=== PATIENT | female | born 1935 | race Caucasian/White ===

== ENCOUNTER 2017-03-07 07:49 | Day surgery (SDC) | payer MEDICARE ==
[2017-02-28 13:51] VITALS: BMI 23.3
[~2017-03-07 07:49] MED LIST: LACTATED RINGERS 1,000 ML IV SCH; LIDOCAINE 1% 20 ML VIAL (10MG/ML) FOR IV START INTRADERMA PRN
[2017-03-07] MEDS ORDERED: LACTATED RINGERS 1,000 ML IV ONE (08:01)
[2017-03-07 08:18] VITALS: TEMP 96.8
[2017-03-07 08:22] LABS: Glucose,Whole Blood 104 mg/dL (75-99)
[2017-03-07] MEDS ORDERED: PROPOFOL 10 MG/ML 20 ML VIAL IV ONE (08:24)
[2017-03-07] MEDS ORDERED: LIDOCAINE 1% INJ 10MG/ML (20 ML MDV) ONE (08:24)
--- NOTE | 2017-03-07 08:42 | P.PCN ---
Date of Procedure: 03/07/17 Procedure(s) Performed: BRIEF HISTORY: Patient is a 81-year-old pleasant white female, scheduled for an elective colonoscopy as a part of evaluation of prior history of colon polyps. Her last colonoscopy was in 2014 and was noted to have a tubular adenoma. PROCEDURE PERFORMED: Colonoscopy with snare polypectomy. PREOPERATIVE DIAGNOSIS: History of colon polyps. IV sedation per Anesthesia. PROCEDURE: After informed consent was obtained, the patient, was brought into the endoscopy unit. IV sedation was administered by Anesthesia under continuous monitoring. Digital rectal examination was normal. Initially the Olympus CF- 160 flexible video colonoscope was then inserted in the rectum, gradually advanced into the cecum without any difficulty. Careful examination was performed as the scope was gradually being withdrawn. Ileocecal valve and the appendiceal orifice were visualized and appeared normal. Prep was excellent. Mucosa of the cecum, ascending colon, transverse colon, descending colon, sigmoid colon, and rectum appeared normal. In the mid rectum there was a 5-6 mL polyp that was removed by snare polypectomy. Retroflexion was performed in the rectum and no lesions were seen. The patient tolerated the procedure well. IMPRESSION: 5-6 mm mid rectal polyp status post polypectomy Rest of the colon appeared normal. RECOMMENDATIONS: Findings of this examination were discussed with the patient as well as a family. She was advised to follow with the biopsy results. Based the biopsy results she can have a repeat surveillance colonoscopy in 5 years from now depending on her overall medical condition.
[2017-03-07 08:45] VITALS: RESP 20
[2017-03-07 09:00] VITALS: BP 104/56; PULSE 52
== END 2017-03-07 09:26 | disposition home or self-care (01) ==
LOC: ORWHC2ENDO 07:49
DX: Z12.11 Encounter for screening for malignant neoplasm of colon (principal); D12.8 Benign neoplasm of rectum; Z86.010 Personal history of colon polyps; I25.10 Atherosclerotic heart disease of native coronary artery without angina pectoris; I10 Essential (primary) hypertension; E78.5 Hyperlipidemia, unspecified; Z87.891 Personal history of nicotine dependence; Z86.73 Personal history of transient ischemic attack (TIA), and cerebral infarction without residual deficits; Z79.02 Long term (current) use of antithrombotics/antiplatelets; Z79.899 Other long term (current) drug therapy; Z88.8 Allergy status to other drugs, medicaments and biological substances; Z91.09 Other allergy status, other than to drugs and biological substances
CPT/HCPCS: 88305; 45385; J2001; J2704

== ENCOUNTER 2017-07-30 10:56 | Day surgery (SDC) | payer MEDICARE ==
[2017-07-27 08:51] VITALS: BMI 21.7
[~2017-07-30 10:56] MED LIST changes: -LIDOCAINE 1% 20 ML VIAL (10MG/ML) FOR IV START INTRADERMA PRN
[2017-07-30 11:20] VITALS: RESP 16; TEMP 98.3
[2017-07-30] MEDS ORDERED: PROPOFOL 10 MG/ML 20 ML VIAL IV ONE (12:28)
[2017-07-30] MEDS ORDERED: LIDOCAINE 1% INJ 10MG/ML (20 ML MDV) ONE (12:28)
[2017-07-30] MEDS ORDERED: LIDOCAINE 2% INJ 20 MG/ML SQ ONE (12:35)
[2017-07-30 13:07] LABS: Basophils % (A) 0 %; CH 41.9; CHCM 34.3; Eosinophils # (A) 0.1 k/uL (0-0.7); Eosinophils % (A) 1 %; HDW 2.43; Luc # (Auto) 0.15; Luc % (Auto) 3; Lymphocytes # (A) 0.9 k/uL (1.0-4.8); Lymphocytes % (A) 20 %; MCHC 34.3 g/dL (31.0-37.0); MCV 122.8 fL (80.0-100.0); Macrocytosis Marked; Mean Platelet Volume 8.1; Monocytes # (A) 0.2 k/uL (0-1.0); Monocytes % (A) 6 %; Neutrophils # (A) 3.1 k/uL (1.3-7.7); Neutrophils % (A) 70 %; RDW 14.2 % (11.5-15.5); WBC 4.5 k/uL (3.8-10.6); WBC (Perox) 4.37
[2017-07-30 13:16] LABS: MCH 42.1 pg (25.0-35.0)
[2017-07-30 13:18] VITALS: BP 137/69; PULSE 51
--- NOTE | 2017-07-30 20:53 | PCN ---
PROCEDURE NOTE DATE OF PROCEDURE: July 30, 2017. PROCEDURE PERFORMED: Bone marrow aspirate and biopsy. INDICATION: Essential thrombocythemia. DESCRIPTION OF PROCEDURE: After obtaining consent from the patient, the procedure was performed in the endoscopy suite. General anesthesia performed by anesthesia team. The patient was put in the left lateral decubitus position. The right posterior superior iliac crest was localized. Skin was prepped with the ChloraPrep. All sterile procedures were followed. 2 mL of 2% lidocaine was used for local anesthetic. Jamshidi was inserted, about 12 mL aspirate and 2 cm core biopsy was obtained without any difficulty. Pressure applied afterward. The patient tolerated the procedure very well without any immediate complications. MMODL / IJN: [id number] /
== END 2017-07-30 13:30 | disposition home or self-care (01) ==
LOC: OR 10:56
PROVIDERS: ATTEND Internal Medicine Hematology & Oncology
DX: D47.Z9 Other specified neoplasms of uncertain behavior of lymphoid, hematopoietic and related tissue (principal); D47.3 Essential (hemorrhagic) thrombocythemia; E11.9 Type 2 diabetes mellitus without complications; I10 Essential (primary) hypertension; K21.9 Gastro-esophageal reflux disease without esophagitis; E78.2 Mixed hyperlipidemia; I25.10 Atherosclerotic heart disease of native coronary artery without angina pectoris; Z86.73 Personal history of transient ischemic attack (TIA), and cerebral infarction without residual deficits; M12.9 Arthropathy, unspecified; Z79.84 Long term (current) use of oral hypoglycemic drugs; Z79.02 Long term (current) use of antithrombotics/antiplatelets; Z79.899 Other long term (current) drug therapy; Z88.8 Allergy status to other drugs, medicaments and biological substances; Z91.040 Latex allergy status; Z91.011 Allergy to milk products
CPT/HCPCS: 85025; 38221; J2001 ×2; J2704; G0364

== ENCOUNTER → 2018-10-31 | Outpatient (CLI) | payer MEDICARE ==
--- NOTE | 2018-11-01 14:51 | MM ---
Reason for exam: screening (asymptomatic). Last mammogram was performed 1 year ago. History: Patient is postmenopausal and history of other cancer. Physical Findings: A clinical breast exam by your physician is recommended on an annual basis and results should be correlated with mammographic findings. MG 3D Screening Mammo W/Cad Bilateral CC and MLO view(s) were taken. Prior study comparison: October 30, 2017, bilateral MG 3d screening mammo w/cad. September 28, 2016, mammogram, performed at [facility]. The breast tissue is heterogeneously dense. This may lower the sensitivity of mammography. No significant changes when compared with prior studies. ASSESSMENT: Benign, BI-RAD 2 RECOMMENDATION: Routine screening mammogram of both breasts in 1 year.
== END | disposition home or self-care (01) ==
LOC: RADMAMWWP 09:33
PROVIDERS: ATTEND Family Medicine
DX: Z12.31 Encounter for screening mammogram for malignant neoplasm of breast (principal)
CPT/HCPCS: 77063; 77067

== ENCOUNTER 2018-12-22 10:10 | Emergency (ER) | payer MEDICARE ==
[2018-12-22 10:15] VITALS: RESP 18; TEMP 98
--- NOTE | 2018-12-22 10:57 | ED ---
Recheck HPI - General Source: patient Mode of arrival: ambulatory Limitations: no limitations <Queenie Cole - Last Filed: 12/22/18 10:59> <Kalin Eddy - Last Filed: 12/22/18 12:36> - General Chief Complaint: Recheck/Abnormal Lab/Rx Stated Complaint: High BP Time Seen by Provider: 12/22/18 10:18 - History of Present Illness Initial Comments: 83-year-old female past medical history of TIA, hyperlipidemia, hypertension, and elevated platelets on hydrea presenting today for cc of elevated BP readings. Pt states that she has had elevated BP readings since beginning Hydrea , she states she had elevation of platelets and was initially told she may have leukemia however she states she had a negative biopsy. Pt states she has been recording her BP almost hourly since Sunday and noticed it was elevated with max diastolic 123. Pt states she has had on and off dull frontal headache. Denies being worst headahce of life, sudden onset, speech changes, vision loss, diplopia, ataxia, dizziness, muscle weakness, sensation deficits or parathesias , nausea, vomiting. Pt denies abdominal pain, back pain/thoracic back pain, fall , syncope, oliguria, anuria, shortness of breath, leg swelling, dyspnea upon exertion, calf pain, hemoptysis. Pt states she was concerned of the elevation of the BP and all of her primary care providers so she presented to the emergency department this morning for evaluation. Upon arrival pt BP is 171/80. HR WNL, 99% on RA, pt appears well there is no signs of acute distress. Pt began expressing how stressed she is about taking care of her who has short term memory problem issues during history taking. (Queenie Cole) - Related Data Home Medications Medication Instructions Recorded Confirmed Atenolol [Tenormin] 25 mg PO BID 05/18/15 12/22/18 Atorvastatin [Lipitor] 10 mg PO DAILY 05/18/15 12/22/18 Hydroxyurea [Hydrea] 500 mg PO DIRECTED 05/18/15 12/22/18 Isosorbide Mononitrate ER [Imdur] 30 mg PO DAILY 05/18/15 12/22/18 Losartan/Hydrochlorothiazide 1 tab PO DAILY 05/18/15 12/22/18 [Losartan-Hctz 50-12.5 mg Tab] amLODIPine BESYLATE [Norvasc] 5 mg PO DAILY 05/18/15 12/22/18 Hydroxyurea 500 mg PO DIRECTED 02/28/17 12/22/18 Previous Rx's Medication Instructions Recorded Clopidogrel [Plavix] 75 mg PO DAILY #30 tab 02/08/16 Allergies Allergy/AdvReac Type Severity Reaction Status Date / Time caffeine Allergy BREAST Verified 12/22/18 10:47 TENDERNESS celecoxib [From Celebrex] Allergy Rash/Hives Verified 12/22/18 10:47 cortisone Allergy Nausea & Verified 12/22/18 10:47 Vomiting headache latex Allergy Rash/Hives Verified 12/22/18 10:47 Milk Containing Products Allergy constipatio Verified 12/22/18 10:47 [Dairy] n naproxen [From Naprosyn] Allergy Unknown Verified 12/22/18 10:47 piroxicam [From Feldene] Allergy Unknown Verified 12/22/18 10:47 Review of Systems ROS Other: All systems not noted in ROS Statement are negative. Constitutional: Denies: fever, chills Eyes: Denies: eye pain, vision change ENT: Denies: hearing loss Respiratory: Denies: cough, dyspnea, wheezes, hemoptysis, stridor Cardiovascular: Denies: chest pain, palpitations, dyspnea on exertion, orthopnea , edema, syncope Gastrointestinal: Denies: abdominal pain, nausea, vomiting, diarrhea, constipation, hematemesis, melena Genitourinary: Denies: urgency, dysuria, frequency, hematuria Musculoskeletal: Denies: back pain Skin: Denies: rash Neurological: Reports: headache. Denies: as per HPI, weakness, numbness, paresthesias, confusion, abnormal gait, vertigo Psychiatric: Reports: anxiety (since having to take care of her ) <Queenie Cole - Last Filed: 12/22/18 10:59> ROS Other: All systems not noted in ROS Statement are negative. <Kalin Eddy - Last Filed: 12/22/18 12:36> ROS Statement: Those systems with pertinent positive or pertinent negative responses have been documented in the HPI. Past Medical History Past Medical History: Coronary Artery Disease (CAD), Cancer, CVA/TIA, Diabetes Mellitus, Hyperlipidemia, Hypertension, Osteoarthritis (OA), Syncope Additional Past Medical History / Comment(s): LEUKEMIA, arterial blockage, History of Any Multi-Drug Resistant Organisms: None Reported Past Surgical History: Bowel Resection, Tonsillectomy Additional Past Surgical History / Comment(s): RIGHT OVARY REMOVED, hi cataract surgery Past Anesthesia/Blood Transfusion Reactions: Motion Sickness Past Psychological History: No Psychological Hx Reported Smoking Status: Former smoker - Past Family History Father Family Medical History: Cancer, Coronary Artery Disease (CAD) Sister(s) Family Medical History: No Reported History Son(s) Family Medical History: Cancer Additional Family Medical History / Comment(s): larynx cancer Daughter(s) Family Medical History: Cancer Mother Family Medical History: Coronary Artery Disease (CAD) <Queenie Cole - Last Filed: 12/22/18 10:59> General Exam Limitations: no limitations <Queenie Cole - Last Filed: 12/22/18 10:59> <Kalin Eddy - Last Filed: 12/22/18 12:36> - General Exam Comments Initial Comments: `General: The patient is awake and alert, in no distress, and does not appear acutely ill. Eye: Pupils are equal, round and reactive to light, extra-ocular movements are intact. No nystagmus. There is normal conjunctiva bilaterally. No signs of icterus. Ears, nose, mouth and throat: There are moist mucous membranes and no oral lesions. Neck: The neck is supple, there is no tenderness or JVD. Cardiovascular: There is a regular rate and rhythm. No murmur, rub or gallop is appreciated. Respiratory: Lungs are clear to auscultation, respirations are non-labored, breath sounds are equal. No wheezes, stridor, rales, or rhonchi. Gastrointestinal: Soft, non-distended, non-tender abdomen without masses or organomegaly noted. There is no rebound or guarding present. No CVA tenderness. Bowel sounds are unremarkable. Musculoskeletal: Normal ROM, no tenderness. Strength 5/5. Sensation intact. Pulses equal bilaterally 2+. Neurological: A&O x 3. CN II-XII intact, There are no obvious motor or sensory deficits. Coordination appears grossly intact. Speech is normal. Skin: Skin is warm and dry and no rashes or lesions are noted. Psychiatric: Cooperative, appropriate mood & affect, normal judgment. (KelseyQueenie Weber) Vital Signs 12/22/18 10:13 Temperature 98 F Pulse Rate 60 Respiratory 18 Rate Blood Pressure 171/80 O2 Sat by Pulse 99 Oximetry Medical Decision Making <Queenie Cole Gus - Last Filed: 12/22/18 10:59> - Lab Data Result diagrams: 12/22/18 11:23 12/22/18 11:23 <aKlin Eddy - Last Filed: 12/22/18 12:36> - Medical Decision Making Patient was seen and evaluated by myself. Labs imaging and further work up was ordered by physician esl instructional assistant prior to my evaluation. Those labs and imaging was reviewed found to be unremarkable. Patient states she had an episode of slight forehead headache that occurred approximately 3 days ago. It resolved on its own spontaneously. Patient is here today because she checked her blood pressure this morning approximately 30 minutes after taking her medication with the elevated blood pressure with [id number]. Patient was concerned and came immediately to the emergency department. Her blood pressures currently being managed by supervisor offset plate preparation Dr. Mendez. Patient's medications were reviewed by myself. More history was obtained from patient. They typically eat out frequently. Last night he went to a new restaurant. She noted that she is on salt restriction however had a bowl of soup. Patient does not normally eat salty foods. Patient denies any caffeine, wine, alcohol, aged cheeses or deli meats. Patient denies any symptoms at this time. Physical examination performed by myself shows no neuro deficits. Patient is well-appearing. Patient has a log of her blood pressures which appear to be relatively well controlled. She does have a monitor at home where she checks her blood pressures frequently. Patient denies any symptoms. No chest pain, no neuro deficits. Patient's elevated blood pressures likely secondary to increased salt intake from yesterday. Patient was observed in the emergency department with self resolution of her blood pressure. Repeat blood pressure was 119/70. Patient is well-appearing. Patient clear for discharge. Patient warned of effects of high salt foods, alcohol and other precipitants to elevated blood pressure. At this point no symptoms to suggest hypertensive urgency, emergency. Patient advised to follow-up with primary care physician upon discharge. Patient and family are understandable and agreeable to plan. Clinical presentation consistent with asymptomatic hypertension. (Kalin Eddy) - Lab Data Lab Results 12/22/18 12/22/18 12/22/18 Range/Units 11:23 11:23 11:23 WBC 2.6 L (3.8-10.6) k/uL RBC 2.35 L (3.80-5.40) m/uL Hgb 10.6 L (11.4-16.0) gm/dL Hct 32.2 L (34.0-46.0) % MCV 137.0 H (80.0-100.0) fL MCH 44.9 H (25.0-35.0) pg MCHC 32.7 (31.0-37.0) g/dL RDW 14.7 (11.5-15.5) % Plt Count 429 (150-450) k/uL Neutrophils % (Manual) 60 % Lymphocytes % (Manual) 26 % Monocytes % (Manual) 13 % Eosinophils % (Manual) 1 % Neutrophils # (Manual) 1.56 (1.3-7.7) k/uL Lymphocytes # (Manual) 0.68 L (1.0-4.8) k/uL Monocytes # (Manual) 0.34 (0-1.0) k/uL Eosinophils # (Manual) 0.03 (0-0.7) k/uL Nucleated RBCs 0 (0-0) /100 WBC Manual Slide Review Performed Hypersegmented Neuts Present Macrocytosis Marked Sodium 138 (137-145) mmol/L Potassium 4.6 (3.5-5.1) mmol/L Chloride 105 (98-107) mmol/L Carbon Dioxide 26 (22-30) mmol/L Anion Gap 7 mmol/L BUN 21 H (7-17) mg/dL Creatinine 0.77 (0.52-1.04) mg/dL Est GFR (CKD-EPI)AfAm 84 (>60 ml/min/1.73 sqM) Est GFR (CKD-EPI)NonAf 73 (>60 ml/min/1.73 sqM) Glucose 108 H (74-99) mg/dL Calcium 9.3 (8.4-10.2) mg/dL Total Bilirubin 1.0 (0.2-1.3) mg/dL AST 20 (14-36) U/L ALT 26 (9-52) U/L Alkaline Phosphatase 63 (38-126) U/L Troponin I <0.012 (0.000-0.034) ng/mL Total Protein 6.4 (6.3-8.2) g/dL Albumin 3.9 (3.5-5.0) g/dL Urine Color Urine Appearance (Clear) Urine pH (5.0-8.0) Ur Specific [place] (1.001-1.035) Urine Protein (Negative) Urine Glucose (UA) (Negative) Urine Ketones (Negative) Urine Blood (Negative) Urine Nitrite (Negative) Urine Bilirubin (Negative) Urine Urobilinogen (<2.0) mg/dL Ur Leukocyte Esterase (Negative) Urine RBC (0-5) /hpf Urine WBC (0-5) /hpf Ur Squamous Epith Cells (0-4) /hpf Urine Mucus (None) /hpf 12/22/18 Range/Units 11:23 WBC (3.8-10.6) k/uL RBC (3.80-5.40) m/uL Hgb (11.4-16.0) gm/dL Hct (34.0-46.0) % MCV (80.0-100.0) fL MCH (25.0-35.0) pg MCHC (31.0-37.0) g/dL RDW (11.5-15.5) % Plt Count (150-450) k/uL Neutrophils % (Manual) % Lymphocytes % (Manual) % Monocytes % (Manual) % Eosinophils % (Manual) % Neutrophils # (Manual) (1.3-7.7) k/uL Lymphocytes # (Manual) (1.0-4.8) k/uL Monocytes # (Manual) (0-1.0) k/uL Eosinophils # (Manual) (0-0.7) k/uL Nucleated RBCs (0-0) /100 WBC Manual Slide Review Hypersegmented Neuts Macrocytosis Sodium (137-145) mmol/L Potassium (3.5-5.1) mmol/L Chloride (98-107) mmol/L Carbon Dioxide (22-30) mmol/L Anion Gap mmol/L BUN (7-17) mg/dL Creatinine (0.52-1.04) mg/dL Est GFR (CKD-EPI)AfAm (>60 ml/min/1.73 sqM) Est GFR (CKD-EPI)NonAf (>60 ml/min/1.73 sqM) Glucose (74-99) mg/dL Calcium (8.4-10.2) mg/dL Total Bilirubin (0.2-1.3) mg/dL AST (14-36) U/L ALT (9-52) U/L Alkaline Phosphatase (38-126) U/L Troponin I (0.000-0.034) ng/mL Total Protein (6.3-8.2) g/dL Albumin (3.5-5.0) g/dL Urine Color Yellow Urine Appearance Clear (Clear) Urine pH 6.5 (5.0-8.0) Ur Specific [place] 1.014 (1.001-1.035) Urine Protein Negative (Negative) Urine Glucose (UA) Negative (Negative) Urine Ketones Negative (Negative) Urine Blood Negative (Negative) Urine Nitrite Negative (Negative) Urine Bilirubin Negative (Negative) Urine Urobilinogen <2.0 (<2.0) mg/dL Ur Leukocyte Esterase Moderate H (Negative) Urine RBC <1 (0-5) /hpf Urine WBC 5 (0-5) /hpf Ur Squamous Epith Cells <1 (0-4) /hpf Urine Mucus Rare H (None) /hpf Disposition <Queenie Cole - Last Filed: 12/22/18 10:59> Is patient prescribed a controlled substance at d/c from ED?: No Time of Disposition: 12:36 <Kalin Eddy - Last Filed: 12/22/18 12:36> Clinical Impression: Hypertension Disposition: HOME SELF-CARE Condition: Good Instructions (If sedation given, give patient instructions): Hypertension in the Older Adult (ED) Referrals: Jose Villalta MD [Primary Care Provider] - 1-2 days
[2018-12-22 11:43] LABS: Appearance,Urine Clear (Clear); Bilirubin,Urine Negative (Negative); Blood,Urine Negative (Negative); Color,Urine Yellow; Glucose,Urine (UA) Negative (Negative); HCT 32.2 % (34.0-46.0); HGB 10.6 gm/dL (11.4-16.0); Ketones,Urine Negative (Negative); Leukocyte Esterase,Urine Moderate (Negative); MCH 44.9 pg (25.0-35.0); MCHC 32.7 g/dL (31.0-37.0); Macrocytosis Marked; Mean Platelet Volume 8.5; Mucus,Urine Rare /hpf; Nitrite,Urine Negative (Negative); PH, Urine 6.5 (5.0-8.0); Platelet Count 429 k/uL (150-450); Protein,Urine Negative (Negative); RBC 2.35 m/uL (3.80-5.40); RBC,Urine <1 /hpf (0-5); RDW 14.7 % (11.5-15.5); Specific Gravity,Urine 1.014 (1.001-1.035); Squamous Epithelial Cell,Urine <1 /hpf (0-4); Urobilinogen,Urine <2.0 mg/dL (<2.0); WBC 2.6 k/uL (3.8-10.6); WBC,Urine 5 /hpf (0-5)
[2018-12-22 11:49] LABS: Albumin 3.9 g/dL (3.5-5.0); Calcium 9.3 mg/dL (8.4-10.2); Potassium 4.6 mmol/L (3.5-5.1); Total Protein 6.4 g/dL (6.3-8.2)
--- NOTE | 2018-12-22 11:50 | CT ---
EXAMINATION TYPE: CT brain wo con DATE OF EXAM: 12/22/2018 COMPARISON: 10/04/2016 HISTORY: Frontal CATHERINE, elevated BP CT DLP: 1068.[address] of the brain was performed. The ventricles, basal cisterns and sulci overlying the cerebral convexities demonstrate mild enlargem ent. There is no evidence for intracranial hemorrhage or sulcal effacement. There is decreased attenuation about the periventricular white matter and deep white matter of both c erebral hemispheres, compatible with chronic small vessel ischemia. Differential diagnosis does inclu de demyelination. No mass effects are seen.No midline shift. Osseous calvarium is intact. If symptoms persist consider MRI. IMPRESSION: 1. Age related atrophic and chronic small vessel ischemic change without acute intracranial process s een at this time.
--- NOTE | 2018-12-22 11:56 | XR ---
EXAMINATION TYPE: XR chest 2V DATE OF EXAM: 12/22/2018 COMPARISON: 10/04/2016 HISTORY: Shortness of breath TECHNIQUE: Frontal and lateral views of the chest are obtained. FINDINGS: Scattered senescent parenchymal changes noted. Hyperinflation compatible with COPD. No evidence for infiltrate. No evidence for atelectasis. Heart size is stable. Mediastinal structures are stable and grossly unremarkable. No evidence for hilar prominence. Degenerative changes dorsal spine. IMPRESSION: 1. No evidence for acute pulmonary disease.
[2018-12-22 12:02] LABS: Eosinophils # (M) 0.03 k/uL (0-0.7); Lymphocytes # (M) 0.68 k/uL (1.0-4.8); Monocytes # (M) 0.34 k/uL (0-1.0); Neutrophils # (M) 1.56 k/uL (1.3-7.7); Neutrophils % (M) 60 %; Nucleated Red Blood Cells 0 /100 WBC (0-0); Total Cells Counted 100
[2018-12-22 12:03] LABS: Hypersegmented Neutrophils Present
[2018-12-22 13:02] VITALS: BP 153/91; PULSE 55
== END 2018-12-22 13:01 | disposition home or self-care (01) ==
LOC: EC 10:10
DX: I10 Essential (primary) hypertension (principal); F43.9 Reaction to severe stress, unspecified; I25.10 Atherosclerotic heart disease of native coronary artery without angina pectoris; E11.9 Type 2 diabetes mellitus without complications; E78.5 Hyperlipidemia, unspecified; M19.90 Unspecified osteoarthritis, unspecified site; Z86.73 Personal history of transient ischemic attack (TIA), and cerebral infarction without residual deficits; Z85.6 Personal history of leukemia; Z87.891 Personal history of nicotine dependence; Z79.899 Other long term (current) drug therapy; Z91.040 Latex allergy status; Z91.011 Allergy to milk products; Z88.6 Allergy status to analgesic agent; Z91.018 Allergy to other foods; Z88.8 Allergy status to other drugs, medicaments and biological substances; Z82.49 Family history of ischemic heart disease and other diseases of the circulatory system
CPT/HCPCS: 36415; 70450; 71046; 80053; 81001; 84484; 85025; 93005; 99284

== ENCOUNTER → 2019-11-28 | Outpatient (CLI) | payer MEDICARE ==
--- NOTE | 2019-12-01 13:14 | MM ---
Reason for exam: screening (asymptomatic). Last mammogram was performed 1 year and 1 month ago. History: Patient is postmenopausal and history of other cancer. Benign excisional biopsy. Physical Findings: A clinical breast exam by your physician is recommended on an annual basis and results should be correlated with mammographic findings. MG 3D Screening Mammo W/Cad Bilateral CC and MLO view(s) were taken. Prior study comparison: October 31, 2018, bilateral MG 3d screening mammo w/cad. October 30, 2017, bilateral MG 3d screening mammo w/cad. The breast tissue is heterogeneously dense. This may lower the sensitivity of mammography. There is no discrete abnormality. No significant changes when compared with prior studies. ASSESSMENT: Negative, BI-RAD 1 RECOMMENDATION: Routine screening mammogram of both breasts in 1 year.
== END | disposition home or self-care (01) ==
LOC: RADMAMWWP 13:41
PROVIDERS: ATTEND Family Medicine
DX: Z12.31 Encounter for screening mammogram for malignant neoplasm of breast (principal)
CPT/HCPCS: 77063; 77067

== ENCOUNTER 2020-08-28 18:59 | Observation (INO) | payer MEDICARE ==
[2020-08-28] MEDS ORDERED: SODIUM CHLORIDE 0.9% 500 ML 500 ML IV ONE (20:13)
[2020-08-28] MEDS ORDERED: ONDANSETRON ODT 4 MG TAB PO STA (20:13)
[2020-08-28] MEDS ORDERED: MECLIZINE 12.5 MG TAB PO STA (20:13)
[2020-08-28] MEDS ORDERED: SODIUM CHLORIDE 0.9% 1,000 ML IV SCH (20:15)
[2020-08-28] MEDS ORDERED: MECLIZINE 25 MG TAB PO STA (20:15)
--- NOTE | 2020-08-28 20:51 | CT ---
EXAMINATION TYPE: CT brain wo con DATE OF EXAM: 08/28/2020 COMPARISON: 12/22/2018 HISTORY: Dizziness and nausea. CT DLP: 1100.4 mGycm Automated exposure control for dose reduction was used. There is cerebral cortical atrophy. There is no mass effect nor midline shift. There is no sign of in tracranial hemorrhage. There is poorly marginated hypodensity anterior left internal capsule related to old lacunar infarct. This area measures 3 x 2 cm. The calvarium is intact. IMPRESSION: Cerebral atrophy. No acute intracranial abnormality. Atrophy more noticeable in the frontal lobes. 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 No significant change compared to old exam.
--- NOTE | 2020-08-28 20:52 | XR ---
EXAMINATION TYPE: XR chest 2V DATE OF EXAM: 08/28/2020 COMPARISON: 12/22/2018 HISTORY: Chest pain TECHNIQUE: FINDINGS: There is no heart failure nor confluent pneumonic infiltrate. Costophrenic angles are clear . Thoracic aorta is atheromatous. Bony thorax is intact. IMPRESSION: No active cardiopulmonary disease. No change.
[2020-08-28 20:57] LABS: Albumin 4.2 g/dL (3.5-5.0); Calcium 9.2 mg/dL (8.4-10.2); Magnesium 2.1 mg/dL (1.6-2.3); Potassium 5.1 mmol/L (3.5-5.1); Total Protein 6.5 g/dL (6.3-8.2)
[2020-08-28 21:02] LABS: Basophils % (A) 0 %; Eosinophils % (A) 0 %; HCT 29.7 % (34.0-46.0); HGB 9.4 gm/dL (11.4-16.0); Hypochromasia Slight; Lymphocytes # (A) 0.7 k/uL (1.0-4.8); Lymphocytes % (A) 16 %; MCHC 31.8 g/dL (31.0-37.0); MCV 135.8 fL (80.0-100.0); Macrocytosis Marked; Mean Platelet Volume 9.1; Monocytes # (A) 0.3 k/uL (0-1.0); Monocytes % (A) 7 %; Neutrophils % (A) 73 %; RBC 2.19 m/uL (3.80-5.40); RDW 15.3 % (11.5-15.5); WBC 4.1 k/uL (3.8-10.6)
[2020-08-28 21:03] LABS: MCH 43.2 pg (25.0-35.0)
[2020-08-28 21:08] LABS: Platelet Count 1135 k/uL (150-450)
[2020-08-28 21:15] LABS: Large Platelets Present; Poikilocytosis (M) Present
[2020-08-28 21:25] LABS: Partial Thromboplastin Time 24.5 sec (22.0-30.0); Prothrombin Time 10.2 sec (9.0-12.0)
[2020-08-28] MEDS ORDERED: MECLIZINE 12.5 MG TAB PO PRN (21:33)
[2020-08-28] MEDS ORDERED: NALOXONE 0.4 MG/ML 1 ML VIAL IV PRN (21:50)
--- NOTE | 2020-08-28 21:52 | ED ---
Dizziness HPI - General Chief Complaint: Dizziness Stated Complaint: poss med reaction-vomiting & dizziness Time Seen by Provider: 08/28/20 19:36 Source: patient Mode of arrival: ambulatory Limitations: no limitations - History of Present Illness Initial Comments: A 5-year-old female presenting today for chief complaint of dizziness. Patient states that she normally takes something called Hydrea because she has had extremely high platelets in the past. She states she was worked up for cancer and she states that she was told that she did not have up she follows hematology Dr. Alfredo. She states that she was taken off the Hydrea August 17. She states that winds when the dizziness gradually began to start. She states she no increased with moving her head she states that the dizziness has become so severe that at times feels off balance and has had one episode of vomiting today. Patient denies any visual changes diplopia weakness of the upper or lower extremities or sensation deficits denies any facial droop difficulty with speech or thought process she denies any headaches neck pain fevers. Patient denies any falls that she has a chest pain shortness of breath, diarrhea or abdominal pain. Patient appears nontoxic in no acute distress upon arrival. - Related Data Home Medications Medication Instructions Recorded Confirmed Isosorbide Mononitrate ER [Imdur] 30 mg PO DAILY 05/18/15 08/28/20 amLODIPine BESYLATE [Norvasc] 5 mg PO HS 05/18/15 08/28/20 atenoloL [Tenormin] 25 mg PO BID 05/18/15 08/28/20 Hydroxyurea 500 mg PO DIRECTED 02/28/17 08/28/20 Acetaminophen Tab [Tylenol Tab] 1,000 mg PO Q6H PRN 08/28/20 08/28/20 Atorvastatin [Lipitor] 20 mg PO DAILY 08/28/20 08/28/20 Calcium Carbonate [Tums Ultra 1,177 mg PO DAILY@1500 08/28/20 08/28/20 Strength] Clopidogrel [Plavix] 75 mg PO HS 08/28/20 08/28/20 Hydrochlorothiazide 12.5mg Tab 12.5 mg PO DAILY 08/28/20 08/28/20 Losartan Potassium 50 mg PO DAILY 08/28/20 08/28/20 Propylene Glycol/Peg 400/Pf 1 drop BOTH EYES BID 10/10/20 10/10/20 [Systane 0.3-0.4% Eye Drops] Psyllium Husk (with Sugar) 30 gm PO HS@199908/28/20 08/28/20 [Metamucil Powder] Allergies Allergy/AdvReac Type Severity Reaction Status Date / Time caffeine Allergy BREAST Verified 08/28/20 19:12 TENDERNESS celecoxib [From Celebrex] Allergy Rash/Hives Verified 08/28/20 19:12 cortisone Allergy Nausea & Verified 08/28/20 19:12 Vomiting headache latex Allergy Rash/Hives Verified 08/28/20 19:12 Milk Containing Products Allergy constipatio Verified 08/28/20 19:12 [Dairy] n naproxen [From Naprosyn] Allergy Unknown Verified 08/28/20 19:12 piroxicam [From Feldene] Allergy Unknown Verified 08/28/20 19:12 Review of Systems ROS Statement: Those systems with pertinent positive or pertinent negative responses have been documented in the HPI. ROS Other: All systems not noted in ROS Statement are negative. Past Medical History Past Medical History: Coronary Artery Disease (CAD), Cancer, CVA/TIA, Diabetes Mellitus, Hyperlipidemia, Hypertension, Osteoarthritis (OA), Syncope Additional Past Medical History / Comment(s): LEUKEMIA, arterial blockage, History of Any Multi-Drug Resistant Organisms: None Reported Past Surgical History: Bowel Resection, Tonsillectomy Additional Past Surgical History / Comment(s): RIGHT OVARY REMOVED, hi cataract surgery Past Anesthesia/Blood Transfusion Reactions: Motion Sickness Past Psychological History: No Psychological Hx Reported Past Alcohol Use History: None Reported Past Drug Use History: None Reported - Past Family History Father Family Medical History: Cancer, Coronary Artery Disease (CAD) Sister(s) Family Medical History: No Reported History Son(s) Family Medical History: Cancer Additional Family Medical History / Comment(s): larynx cancer Daughter(s) Family Medical History: Cancer Mother Family Medical History: Coronary Artery Disease (CAD) General Exam - General Exam Comments Initial Comments: General: The patient is awake and alert, in no distress Eye: +3 mm pupils are equal, round and reactive to light, extra-ocular movements are intact. No nystagmus. There is normal conjunctiva bilaterally. No signs of icterus. Ears, nose, mouth and throat: There are moist mucous membranes and no oral lesions. Neck: The neck is supple, there is no tenderness or JVD. Cardiovascular: There is a regular rate and rhythm. No murmur, rub or gallop is appreciated. Respiratory: Lungs are clear to auscultation, respirations are non-labored, breath sounds are equal. No wheezes, stridor, rales, or rhonchi. Gastrointestinal: Soft, non-distended, non-tender abdomen without masses or organomegaly noted. There is no rebound or guarding present. = Musculoskeletal: Normal ROM, no tenderness. Strength 5/5. Sensation intact. Radial pulses equal bilaterally 2+. Neurological: A&O x 3. CN II-XII intact, no pronator drift. No ataxia.no nystagmus the dizziness increases with head movement There are no obvious motor or sensory deficits. Coordination appears grossly intact. Speech is normal. Skin: Skin is warm and dry and no rashes or lesions are noted. No LE edema. Psychiatric: Cooperative, appropriate mood & affect, normal judgment. Limitations: no limitations Course Vital Signs 08/28/20 08/28/20 19:06 21:56 Temperature 97.2 F L Pulse Rate 65 61 Respiratory 18 16 Rate Blood Pressure 191/85 156/81 O2 Sat by Pulse 100 98 Oximetry EKG Findings - EKG Comments: EKG Findings:: Ventricular rate 67 bpm, NE interval 170 ms, QRS religious 96 also considered QT/QTC 44/426. This is sinus rhythm with sinus arrhythmia and occasional PVCs. There is no ST elevation or depression Medical Decision Making - Medical Decision Making Thrombocytosis hemoglobin stable. Patient dizziness did improve somewhat with antivert. Patient troponin (-) EKG no acute findings. CT no acute findings. No focal neurological deficits no nystagmus. Patient will be admitted for neurology consultation as well as hematology given patient's significantly elevated platelet count. I discussed the case rotated right upper compartment was agreeable to this care plan and was at this time. - Lab Data Result diagrams: 08/28/20 20:33 08/28/20 20:33 Lab Results 08/28/20 08/28/20 08/28/20 Range/Units 20:33 20:33 20:33 WBC 4.1 (3.8-10.6) k/uL RBC 2.19 L (3.80-5.40) m/uL Hgb 9.4 L (11.4-16.0) gm/dL Hct 29.7 L (34.0-46.0) % MCV 135.8 H (80.0-100.0) fL MCH 43.2 H (25.0-35.0) pg MCHC 31.8 (31.0-37.0) g/dL RDW 15.3 (11.5-15.5) % Plt Count 1135 H* D (150-450) k/uL Neutrophils % 73 % Lymphocytes % 16 % Monocytes % 7 % Eosinophils % 0 % Basophils % 0 % Neutrophils # 3.0 (1.3-7.7) k/uL Lymphocytes # 0.7 L (1.0-4.8) k/uL Monocytes # 0.3 (0-1.0) k/uL Eosinophils # 0.0 (0-0.7) k/uL Basophils # 0.0 (0-0.2) k/uL Manual Slide Review Performed Large Platelets Present Hypochromasia Slight Poikilocytosis (manual Present Macrocytosis Marked A PT 10.2 (9.0-12.0) sec INR 1.0 (<1.2) APTT 24.5 (22.0-30.0) sec Sodium 131 L (137-145) mmol/L Potassium 5.1 (3.5-5.1) mmol/L Chloride 98 (98-107) mmol/L Carbon Dioxide 26 (22-30) mmol/L Anion Gap 7 mmol/L BUN 23 H (7-17) mg/dL Creatinine 0.79 (0.52-1.04) mg/dL Est GFR (CKD-EPI)AfAm 81 (>60 ml/min/1.73 sqM) Est GFR (CKD-EPI)NonAf 70 (>60 ml/min/1.73 sqM) Glucose 129 H (74-99) mg/dL Calcium 9.2 (8.4-10.2) mg/dL Magnesium 2.1 (1.6-2.3) mg/dL Total Bilirubin 1.0 (0.2-1.3) mg/dL AST 27 (14-36) U/L ALT 15 (4-34) U/L Alkaline Phosphatase 85 (38-126) U/L Troponin I (0.000-0.034) ng/mL Total Protein 6.5 (6.3-8.2) g/dL Albumin 4.2 (3.5-5.0) g/dL 08/28/20 Range/Units 20:33 WBC (3.8-10.6) k/uL RBC (3.80-5.40) m/uL Hgb (11.4-16.0) gm/dL Hct (34.0-46.0) % MCV (80.0-100.0) fL MCH (25.0-35.0) pg MCHC (31.0-37.0) g/dL RDW (11.5-15.5) % Plt Count (150-450) k/uL Neutrophils % % Lymphocytes % % Monocytes % % Eosinophils % % Basophils % % Neutrophils # (1.3-7.7) k/uL Lymphocytes # (1.0-4.8) k/uL Monocytes # (0-1.0) k/uL Eosinophils # (0-0.7) k/uL Basophils # (0-0.2) k/uL Manual Slide Review Large Platelets Hypochromasia Poikilocytosis (manual Macrocytosis PT (9.0-12.0) sec INR (<1.2) APTT (22.0-30.0) sec Sodium (137-145) mmol/L Potassium (3.5-5.1) mmol/L Chloride (98-107) mmol/L Carbon Dioxide (22-30) mmol/L Anion Gap mmol/L BUN (7-17) mg/dL Creatinine (0.52-1.04) mg/dL Est GFR (CKD-EPI)AfAm (>60 ml/min/1.73 sqM) Est GFR (CKD-EPI)NonAf (>60 ml/min/1.73 sqM) Glucose (74-99) mg/dL Calcium (8.4-10.2) mg/dL Magnesium (1.6-2.3) mg/dL Total Bilirubin (0.2-1.3) mg/dL AST (14-36) U/L ALT (4-34) U/L Alkaline Phosphatase (38-126) U/L Troponin I <0.012 (0.000-0.034) ng/mL Total Protein (6.3-8.2) g/dL Albumin (3.5-5.0) g/dL Disposition Clinical Impression: Dizziness, Vomiting, Thrombocytosis Disposition: ADMITTED IP TO THIS [facility] Condition: Stable Is patient prescribed a controlled substance at d/c from ED?: No Time of Disposition: 21:52 Decision to Admit Reason: Admit from EC Decision Date: 08/28/20 Decision Time: 21:52
[2020-08-28] MEDS ORDERED: ACETAMINOPHEN TAB 500 MG TAB PO PRN (23:23)
[2020-08-28] MEDS ORDERED: ONDANSETRON 4 MG/2 ML VIAL IVP PRN (23:26)
[2020-08-28] MEDS: amLODIPine 5 MG TAB PO SCH (23:44)
[2020-08-28] MEDS: CLOPIDOGREL 75 MG TAB PO SCH (23:44)
[2020-08-28] MEDS: atenoloL 25 MG TAB PO SCH (23:44)
[2020-08-29 00:20] LABS: Reticulocyte % 4.3 % (0.5-2.0)
[2020-08-29 06:59] LABS: HCT 27.9 % (34.0-46.0); HGB 8.7 gm/dL (11.4-16.0); Hypochromasia Moderate; MCHC 31.3 g/dL (31.0-37.0); MCV 139.5 fL (80.0-100.0); Macrocytosis Marked; Mean Platelet Volume 9.6; RDW 15.8 % (11.5-15.5); WBC 3.5 k/uL (3.8-10.6)
[2020-08-29 07:09] LABS: Glucose,Whole Blood 98 mg/dL (75-99)
[2020-08-29 07:13] LABS: MCH 43.6 pg (25.0-35.0)
[2020-08-29 07:14] LABS: Platelet Count 1038 k/uL (150-450)
[2020-08-29 08:53] LABS: Band Neutrophils % 1 %; Eosinophils # (M) 0.04 k/uL (0-0.7); Lymphocytes # (M) 0.84 k/uL (1.0-4.8); Monocytes # (M) 0.49 k/uL (0-1.0); Neutrophils % (M) 60 %; Nucleated Red Blood Cells 0 /100 WBC (0-0); Total Cells Counted 100
[2020-08-29 08:54] LABS: Ovalocytes Present; Poikilocytosis (M) Present
[2020-08-29] MEDS: INSULIN ASPART (NovoLOG) 100 UNIT/ML VIAL SQ SCH ×4 (08:54→21:36)
[2020-08-29] MEDS: hydroCHLOROthiazide 25 MG TAB PO SCH (08:58)
[2020-08-29] MEDS: ISOSORBIDE MONONITRATE ER 30 MG TAB.ER.24H PO SCH (08:58)
[2020-08-29] MEDS: LOSARTAN 50 MG TAB PO SCH (08:59)
[2020-08-29] MEDS: ATORVASTATIN 20 MG TAB PO SCH (08:59)
[2020-08-29] MEDS: atenoloL 25 MG TAB PO SCH ×2 (08:59→21:54)
[2020-08-29] MEDS ORDERED: NON FORMULARY DRUG (Propylene Glycol/Peg 400/Pf [Systane 0.3-0.4% Eye Drop] 1 EACH Dropere BOTH EYES SCH (09:00)
[2020-08-29] MEDS ORDERED: MECLIZINE 25 MG TAB PO PRN (09:18)
[2020-08-29 09:26] LABS: % Iron Saturation 17.18 (12.00-45.00)
[2020-08-29 09:34] LABS: Ferritin 112.6 ng/mL (10.0-291.0)
[2020-08-29 09:45] LABS: Folate, Serum 14.9 ng/mL
[2020-08-29 09:57] LABS: Albumin 3.7 g/dL (3.80-4.90); Albumin/Globulin Ratio 2.06 (1.60-3.17); Anion Gap 7.7 mmol/L (4.00-12.00); BUN/Creat Ratio 18.75 Ratio (12.00-20.00); Calcium 8.7 mg/dL (8.7-10.3); Carbon Dioxide 28.3 mmol/L (21.6-31.8); Globulin 1.8 g/dL (1.6-3.3); Non-African American GFR(CKD) 68.2 (60.0-200.0); Potassium 4.8 mmol/L (3.5-5.5); Total Bilirubin 0.9 mg/dL (0.2-1.2); Total Protein 5.5 g/dL (6.2-8.2)
--- NOTE | 2020-08-29 10:35 | US ---
EXAMINATION TYPE: US carotid duplex BILAT DATE OF EXAM: 08/29/2020 COMPARISON: US CLINICAL HISTORY: dizziness . EXAM MEASUREMENTS: RIGHT: Peak Systolic Velocity (PSV) cm/sec ----- Right CCA: 70.3 ----- Right ICA: 73.2 ----- Right ECA: 73.2 ICA/CCA ratio: 1.0 RIGHT: End Diastole cm/sec ----- Right CCA: 19.7 ----- Right ICA: 25.9 ----- Right ECA: 0.0 LEFT: Peak Systolic Velocity (PSV) cm/sec ----- Left CCA: 72.9 ----- Left ICA: 97.4 ----- Left ECA: 148.9 ICA/CCA ratio: 1.3 LEFT: End Diastole cm/sec ----- Left CCA: 22.3 ----- Left ICA: 35.8 ----- Left ECA: 16.9 VERTEBRALS (direction of flow): Right Vertebral: Antegrade Left Vertebral: Antegrade Rhythm: Normal No significant stenosis seen. Bilateral plaque noted. Intimal thickening noted on the left. Bilatera l ICA's are tortuous distally. Mildly elevated left ECA. IMPRESSION: No evidence for hemodynamically significant stenosis at this time. Criteria for Assigning % of Stenosis / Diameter reduction (Estimation based on the indirect measurements of the internal carotid artery velocities (ICA PSV). 1. Normal (no stenosis)=ICA PSV < 125 cm/s: ratio < 2.0: ICA EDV<40 cm/s. 2. Less than 50% stenosis=ICA PSV < 125 cm/s: ratio < 2.0: ICA EDV<40 cm/s. 3. 50 to 69% stenosis=ICA PSV of 125 to 230 cm/s: ration 2.0 ? 4.0: ICA EDV 40-100 cm/s. 4. Greater than 70% stenosis to near occlusion= ICA PSV > 230 cm/s: ratio > 4.0: ICA EDV > 100 cm/s. 5. Near occlusion= ICA PSV velocities may be low or undetectable: variable ratio and ICA EDV. 6. Total occlusion=unable to detect flow.
[2020-08-29 11:44] LABS: Glucose,Whole Blood 117 mg/dL (75-99)
--- NOTE | 2020-08-29 11:50 | P.HPIM ---
History of Present Illness H&P Date: 08/29/20 This is an 85-year-old pleasant lady whose patient of Dr. Bethel Villalta. Past medical history significant for hypertension, diabetes mellitus type 2, prior history of vertigo and syncope, coronary artery disease, CVA/TIA, hyperlipidemia, osteoarthritis, and hematology disorder and has been on Hydrea following with hematology for this. She did have a bone marrow biopsy in 2017. She presented to the emergency room yesterday with complaints of dizziness, weakness and not feeling well. The dizziness had been so severe she had been off balance and did have an episode of vomiting. Denies any visual changes weakness of upper or lower extremities difficulty in speech, facial droop. Reports she has some numbness in bilateral hands only. Orthostatics have been negative. Platelet count was 1135 on admission, hemoglobin 9.4, retake count 4.3. Patient was admitted with consults to neurology and Dr. Alfredo. Will order MRI of the brain and carotid to be done. Review of Systems CONSTITUTIONAL: Well-developed no acute respiratory distress. EYES: No icterus sclerae, no conjunctivitis. EARS, NOSE, MOUTH, THROAT, and FACE: No sore throat, lymphadenopathy, carotid b ruits or deformity. RESPIRATORY: Negative dyspnea and shortness of breath and denies cough and wheez es. CARDIOVASCULAR: Negative PND orthopnea palpitation no angina significant fluid and water retention. GASTROINTESTINAL: No Abd pain, no nausea/ vomiting, no Diarrhea or constipation, No GI Bleed, no distention or masses. GENITOURINARY: Negative for Hematuria or UTI, no kidney stones. INTEGUMENT/BREAST: Negative for any muscular injury with mild osteoarthritis.. HEMATOLOGIC/LYMPHATIC: Negative for bleed or purpura. MUSCULOSKELTAL: Negative for Myalgia or arthralgia. NEURLOGICAL: No LOC, Sz or syncope, blurred vision, dizziness reports room is spinning with mild numbness in fingers BEHAVIORAL/PSYCH: Negative. ENDOCRINE: Negative. Past Medical History Past Medical History: Coronary Artery Disease (CAD), Cancer, CVA/TIA, Diabetes Mellitus, Hyperlipidemia, Hypertension, Osteoarthritis (OA), Syncope Additional Past Medical History / Comment(s): LEUKEMIA, arterial blockage History of Any Multi-Drug Resistant Organisms: None Reported Past Surgical History: Bowel Resection, Tonsillectomy Additional Past Surgical History / Comment(s): RIGHT OVARY REMOVED, hi cataract surgery, bone marrow biopsy Past Anesthesia/Blood Transfusion Reactions: Motion Sickness Past Psychological History: No Psychological Hx Reported Smoking Status: Former smoker Past Alcohol Use History: None Reported Additional Past Alcohol Use History / Comment(s): smoked on and off [id number] 1ppd Past Drug Use History: None Reported - Past Family History Father Family Medical History: Cancer, Coronary Artery Disease (CAD) Sister(s) Family Medical History: No Reported History Son(s) Family Medical History: Cancer Additional Family Medical History / Comment(s): larynx cancer Daughter(s) Family Medical History: Cancer Mother Family Medical History: Coronary Artery Disease (CAD) Medications and Allergies Home Medications Medication Instructions Recorded Confirmed Type Isosorbide Mononitrate ER [Imdur] 30 mg PO DAILY 05/18/15 08/28/20 History amLODIPine BESYLATE [Norvasc] 5 mg PO HS 05/18/15 08/28/20 History atenoloL [Tenormin] 25 mg PO BID 05/18/15 08/28/20 History Acetaminophen Tab [Tylenol Tab] 1,000 mg PO Q6H PRN 08/28/20 08/28/20 History Atorvastatin [Lipitor] 20 mg PO DAILY 08/28/20 08/28/20 History Calcium Carbonate [Tums Ultra 1,177 mg PO DAILY@1500 08/28/20 08/28/20 History Strength] Clopidogrel [Plavix] 75 mg PO HS 08/28/20 08/28/20 History Hydrochlorothiazide 12.5mg Tab 12.5 mg PO DAILY 08/28/20 08/28/20 History Losartan Potassium 50 mg PO DAILY 08/28/20 08/28/20 History Propylene Glycol/Peg 400/Pf 1 drop BOTH EYES BID 08/28/20 08/28/20 History [Systane 0.3-0.4% Eye Drops] Psyllium Husk (with Sugar) 30 gm PO HS@199908/28/20 08/28/20 History [Metamucil Powder] Allergies Allergy/AdvReac Type Severity Reaction Status Date / Time caffeine Allergy BREAST Verified 08/28/20 19:12 TENDERNESS celecoxib [From Celebrex] Allergy Rash/Hives Verified 08/28/20 19:12 cortisone Allergy Nausea & Verified 08/28/20 19:12 Vomiting headache latex Allergy Rash/Hives Verified 08/28/20 19:12 Milk Containing Products Allergy constipatio Verified 08/28/20 19:12 [Dairy] n naproxen [From Naprosyn] Allergy Unknown Verified 08/28/20 19:12 piroxicam [From Feldene] Allergy Unknown Verified 08/28/20 19:12 Physical Exam Vitals: Vital Signs Temp Pulse Pulse Resp BP BP BP 08/29/20 06:13 170/70 168/70 08/29/20 04:08 97.6 F 54 L 17 08/28/20 23:48 63 16 155/73 176/69 08/28/20 22:43 98.1 F 69 16 08/28/20 21:56 61 16 156/81 08/28/20 19:06 97.2 F L 65 18 191/85 BP BP Pulse Ox 08/29/20 06:13 164/73 08/29/20 04:08 130/67 96 08/28/20 23:48 150/61 97 08/28/20 22:43 173/75 96 08/28/20 21:56 98 08/28/20 19:06 100 Intake and Output 08/28/20 08/29/20 08/29/20 22:59 06:59 14:59 Intake Total 450 Balance 450 Intake: Intake, IV Titration 450 Amount Sodium Chloride 0.9% 1, 450 000 ml @ 75 mls/hr IV . [id number] [facility] Rx#:[id number] Other: Voiding Method Toilet Weight 58.967 kg General Appearance: Alert, cooperative, no distress, appears stated age. Neck HEENT: Supple, no lymphadenopathy, no thyroid enlargement, no carotid bruits. Lungs: Lung sounds clear to auscultation, no wheezes or rhonchi noted Chest Wall: Normal expansion with deep inspiration no tenderness and no deformity was found on exam, no costochondral pain or discomfort. Heart: regular rate and rhythm, S1, S2. No abnormal heart sounds S3, murmur or click Back: Symmetric, no curvature, ROM normal, no CVA tenderness. Abdomen: Soft, non-tender, bowel sounds active all four quadrants, no masses, no organomegaly. Extremities: Extremities normal, atraumatic, no cyanosis Pulses: 2+ and symmetric. Skin: Skin color, texture, tugor normal, no rashes or lesions. Neurologic: Alert oriented x3 cranial nerves II through XII intact, no motor deficit, no abnormal balance or gait. Mild nystagmus lateralized right side Results CBC & Chem 7: 08/29/20 06:06 08/29/20 06:06 Labs: Abnormal Lab Results - Last 24 Hours (Table) 08/28/20 08/28/20 08/29/20 Range/Units 20:33 20:33 00:04 WBC (3.8-10.6) k/uL RBC 2.19 L (3.80-5.40) m/uL Hgb 9.4 L (11.4-16.0) gm/dL Hct 29.7 L (34.0-46.0) % MCV 135.8 H (80.0-100.0) fL MCH 43.2 H (25.0-35.0) pg RDW (11.5-15.5) % Plt Count 1135 H* D (150-450) k/uL Lymphocytes # 0.7 L (1.0-4.8) k/uL Macrocytosis Marked A Retic Count 4.3 H (0.5-2.0) % Sodium 131 L (137-145) mmol/L BUN 23 H (7-17) mg/dL Glucose 129 H (74-99) mg/dL 08/29/20 Range/Units 06:06 WBC 3.5 L (3.8-10.6) k/uL RBC 2.00 L (3.80-5.40) m/uL Hgb 8.7 L (11.4-16.0) gm/dL Hct 27.9 L (34.0-46.0) % MCV 139.5 H (80.0-100.0) fL MCH 43.6 H (25.0-35.0) pg RDW 15.8 H (11.5-15.5) % Plt Count 1038 H* (150-450) k/uL Lymphocytes # (1.0-4.8) k/uL Macrocytosis Marked A Retic Count (0.5-2.0) % Sodium (137-145) mmol/L BUN (7-17) mg/dL Glucose (74-99) mg/dL Thrombosis Risk Factor Assmnt - Choose All That Apply Any of the Below Risk Factors Present?: No Other Risk Factors: No Each Risk Factor Represents 3 Points: Age 75 years or older Other congenital or acquired thrombophilia - If yes, enter type in comment: No Thrombosis Risk Factor Assessment Total Risk Factor Score: 3 Thrombosis Risk Factor Assessment Level: Very Low Risk Assessment and Plan Plan: 1. Recurrent vertigo which is precipitated with moving forward and standing up. Doubt TIA at this time. Patient does not have any history of hearing loss, tinnitus or vertigo, history of a diagnosed TIA with the same presentation again a neurologic workup was offered to the patient for which she would undergo an MRI I of the brain CTA of the carotid vessels and consultations with neurology. Meclizine as needed. Consults were made with physical therapy secondary to impaired balance. Gross motor examination of the lower extremities are unremarkable, patient is maintained on Plavix 2. History of TIA continue Plavix 75 mg daily 2. History of diabetes mellitus type 2 currently diet controlled, on NovoLog sliding scale 3. Hypertension on Norvasc 5 mg ,losartan HCTZ 50/12.5mg, Imdur 30mg, and atenolol 25 mg twice a day continue to monitor for orthostatics. monitor for any arrhythmias patient's to maintain on telemetry 4. CAD on Imdur. Plavix losartan HCTZ amlodipine Tenormin and Lipitor no changes made 5. Hyperlipidemia on Lipitor 20 mg daily 6. Osteo-arthritis. Tylenol as needed 7. Hematology disorder with anemia. History bone marrow biopsy in 2017 was on on maintenance Hydrea, with consults to Dr. Alfredo. We'll check a stool for Occult. 8. History of constipation. On Metamucil 9. DVT prophylaxis: On heparin subcu 12 GI prophylaxis: 10. GI prophylaxis Patient will continue on PPI CODE STATUS: Full code. Admit patient to the inpatient service for more than 2 night stay. Discharge plan: Likely return to home Impression and plan of care have been directed as dictated by the signing physician. Jessica Garcia nurse practitioner acting as scribe for signing physician.
[2020-08-29] MEDS: FLUTICASONE 50MCG/SPRAY NASAL 16GM EA NOSTRIL SCH (12:04)
[2020-08-29] MEDS: CYANOCOBALAMIN 1,000 MCG/ML 1 ML VIAL IM SCH (12:04)
[2020-08-29 13:30] LABS: Hemoglobin A1C 5.9 % (4.0-6.0)
--- NOTE | 2020-08-29 14:25 | P.CONS ---
History of Present Illness - Reason for Consult Consult date: 08/29/20 MPD, Thrombocytosis Requesting physician: Queenie Cole - Chief Complaint Nausea, vomiting, Dizzy - History of Present Illness Ms Martinez is a pleasant WF, with normal CBC in 2011. In 05/01 her plt were noted to be 668. On 10/21/13, they were up to 1190. She had no symptoms of inflammation or bleeding. She was thus referred here by Dr Villalta. She denied any blood problems in the past. 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 Her ASA was increased to 2/day, and she was started on hydrea 500 mg BID. Additional w/u was ordered. TERENCE 2 mutation testing was negative, but clinically, her picture was quite c/w MPD. She had been having minor hydrea related side effects with mild hair loss, that had become slightly more prominent. This has improved. She was c/o some mild nausea, also improved. Her dose was changed to 1 cap on //F/Sun in 06/01,and BID on other days. Since late 03/03, the pt developed diarrhea, upper mid abdominal pain, with cramping and gas. Diarrhea was improved with Metamucil. No h/o f/c. Stool studies were ordered , which were negative. She was also prescribed Prilosec, but did not start it as her pharmacist told her it could cause vitamin deficiency! She had an EGD in 06/02, which revealed a hiatal hernia and gastritis. Her GI symptoms are much improved with Prilosec and change in diet. She was admitted to [facility] in 02/01 with acute onset dizziness, cold sweats and dry heaves. Her w/u including MRI, was negative. She was changed to Plavix from the ASA, for a possible TIA. She was found to have a new blockage in her heart in 03/04. She was c/o some increase in hair loss, which has stabilised. When seen here on 02/11/16, dose was changed to BID 4 days of the week and Q day other 3 days. Dose was increased to BID 5 days of the week, Q day the other 2 days, in 03/05, as plt had increased to 792. No h/o f/c/n/v. She is c/o constipation, increased fatigue, and mild generalized itching. She has had intermittent loss of appetite. She feels the numbness in her feet is more prominent. She has a mild sore throat on and off with the Hydrea, resolved with using a salt water rinse. Her ROS is otherwise as per HPI and negative out of 10. 06/19/2017: She came to see me today to discuss therapy,she stated that she feels tired,has mild numbness in her feet,off/on,lost some weight,no fever,night sweats.She beleives that hydroxyurea is causing her symptoms.Her platelets counts today are higher than previous visits. On 07/17/2017: She has been on increased dose of hydrea since 11/2016,tolerating it well,her platelets are better but still elevated,she is doing well.No systemic symptoms. Will further increase hydrea dose. 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 Hydrea was stopped on 07/2020 due to persistent leukopenia and anemia and stable platelets. Review of Systems All systems: negative Constitutional: Reports as per HPI Past Medical History Past Medical History: Coronary Artery Disease (CAD), Cancer, CVA/TIA, Diabetes Mellitus, Hyperlipidemia, Hypertension, Osteoarthritis (OA), Syncope Additional Past Medical History / Comment(s): LEUKEMIA, arterial blockage History of Any Multi-Drug Resistant Organisms: None Reported Past Surgical History: Bowel Resection, Tonsillectomy Additional Past Surgical History / Comment(s): RIGHT OVARY REMOVED, hi cataract surgery, bone marrow biopsy Past Anesthesia/Blood Transfusion Reactions: Motion Sickness Past Psychological History: No Psychological Hx Reported Smoking Status: Former smoker Past Alcohol Use History: None Reported Additional Past Alcohol Use History / Comment(s): smoked on and off [id number] 1ppd Past Drug Use History: None Reported - Past Family History Father Family Medical History: Cancer, Coronary Artery Disease (CAD) Sister(s) Family Medical History: No Reported History Son(s) Family Medical History: Cancer Additional Family Medical History / Comment(s): larynx cancer Daughter(s) Family Medical History: Cancer Mother Family Medical History: Coronary Artery Disease (CAD) Medications and Allergies Home Medications Medication Instructions Recorded Confirmed Type Isosorbide Mononitrate ER [Imdur] 30 mg PO DAILY 05/18/15 08/28/20 History amLODIPine BESYLATE [Norvasc] 5 mg PO HS 05/18/15 08/28/20 History atenoloL [Tenormin] 25 mg PO BID 05/18/15 08/28/20 History Acetaminophen Tab [Tylenol Tab] 1,000 mg PO Q6H PRN 08/28/20 08/28/20 History Atorvastatin [Lipitor] 20 mg PO DAILY 08/28/20 08/28/20 History Calcium Carbonate [Tums Ultra 1,177 mg PO DAILY@1500 08/28/20 08/28/20 History Strength] Clopidogrel [Plavix] 75 mg PO HS 08/28/20 08/28/20 History Hydrochlorothiazide 12.5mg Tab 12.5 mg PO DAILY 08/28/20 08/28/20 History Losartan Potassium 50 mg PO DAILY 08/28/20 08/28/20 History Propylene Glycol/Peg 400/Pf 1 drop BOTH EYES BID 08/28/20 08/28/20 History [Systane 0.3-0.4% Eye Drops] Psyllium Husk (with Sugar) 30 gm PO HS@2000 08/28/20 08/28/20 History [Metamucil Powder] Allergies Allergy/AdvReac Type Severity Reaction Status Date / Time caffeine Allergy BREAST Verified 08/28/20 19:12 TENDERNESS celecoxib [From Celebrex] Allergy Rash/Hives Verified 08/28/20 19:12 cortisone Allergy Nausea & Verified 08/28/20 19:12 Vomiting headache latex Allergy Rash/Hives Verified 08/28/20 19:12 Milk Containing Products Allergy constipatio Verified 08/28/20 19:12 [Dairy] n naproxen [From Naprosyn] Allergy Unknown Verified 08/28/20 19:12 piroxicam [From Feldene] Allergy Unknown Verified 08/28/20 19:12 Physical Exam Vitals: Vital Signs Temp Pulse Pulse Resp BP BP BP 08/29/20 11:07 97.6 F 56 L 17 08/29/20 06:13 170/70 168/70 08/29/20 04:08 97.6 F 54 L 17 08/28/20 23:48 63 16 155/73 176/69 08/28/20 22:43 98.1 F 69 16 08/28/20 21:56 61 16 156/81 08/28/20 19:06 97.2 F L 65 18 191/85 BP BP Pulse Ox 08/29/20 11:07 119/60 95 08/29/20 06:13 164/73 08/29/20 04:08 130/67 96 08/28/20 23:48 150/61 97 08/28/20 22:43 173/75 96 08/28/20 21:56 98 08/28/20 19:06 100 Intake and Output 08/28/20 08/29/20 08/29/20 22:59 06:59 14:59 Intake Total 450 Balance 450 Intake: Intake, IV Titration 450 Amount Sodium Chloride 0.9% 1, 450 000 ml @ 75 mls/hr IV . [id number] [facility] Rx#:[id number] Other: Voiding Method Toilet Weight 58.967 kg - Constitutional General appearance: cooperative, no acute distress - EENT Eyes: EOMI, PERRLA ENT: hard of hearing, NA/AT, normal oropharynx - Neck Neck: normal ROM - Respiratory Respiratory: bilateral: CTA - Cardiovascular Rhythm: regular Heart sounds: normal: S1, S2 - Gastrointestinal General gastrointestinal: normal bowel sounds, soft, splenomegaly - Integumentary Integumentary: pale - Neurologic Neurologic: CNII-XII intact - Musculoskeletal Musculoskeletal: generalized weakness, strength equal bilaterally - Psychiatric Psychiatric: A&O x's 3, appropriate affect, intact judgment & insight Results CBC & Chem 7: 08/29/20 06:06 08/29/20 06:06 Labs: Abnormal Lab Results - Last 24 Hours (Table) 08/28/20 08/28/20 08/29/20 Range/Units 20:33 20:33 00:04 WBC (3.8-10.6) k/uL RBC 2.19 L (3.80-5.40) m/uL Hgb 9.4 L (11.4-16.0) gm/dL Hct 29.7 L (34.0-46.0) % MCV 135.8 H (80.0-100.0) fL MCH 43.2 H (25.0-35.0) pg RDW (11.5-15.5) % Plt Count 1135 H* D (150-450) k/uL Lymphocytes # 0.7 L (1.0-4.8) k/uL Lymphocytes # (Manual) (1.0-4.8) k/uL Macrocytosis Marked A Retic Count 4.3 H (0.5-2.0) % Sodium 131 L (137-145) mmol/L BUN 23 H (7-17) mg/dL Glucose 129 H (74-99) mg/dL POC Glucose (mg/dL) (75-99) mg/dL Lactate Dehydrogenase (120-246) U/L Total Protein (6.2-8.2) g/dL Albumin (3.80-4.90) g/dL 08/29/20 08/29/20 08/29/20 Range/Units 00:04 06:06 06:06 WBC 3.5 L (3.8-10.6) k/uL RBC 2.00 L (3.80-5.40) m/uL Hgb 8.7 L (11.4-16.0) gm/dL Hct 27.9 L (34.0-46.0) % MCV 139.5 H (80.0-100.0) fL MCH 43.6 H (25.0-35.0) pg RDW 15.8 H (11.5-15.5) % Plt Count 1038 H* (150-450) k/uL Lymphocytes # (1.0-4.8) k/uL Lymphocytes # (Manual) 0.84 L (1.0-4.8) k/uL Macrocytosis Marked A Retic Count (0.5-2.0) % Sodium (137-145) mmol/L BUN (7-17) mg/dL Glucose (74-99) mg/dL POC Glucose (mg/dL) (75-99) mg/dL Lactate Dehydrogenase 311 H (120-246) U/L Total Protein 5.5 L (6.2-8.2) g/dL Albumin 3.70 L (3.80-4.90) g/dL 08/29/20 Range/Units 11:20 WBC (3.8-10.6) k/uL RBC (3.80-5.40) m/uL Hgb (11.4-16.0) gm/dL Hct (34.0-46.0) % MCV (80.0-100.0) fL MCH (25.0-35.0) pg RDW (11.5-15.5) % Plt Count (150-450) k/uL Lymphocytes # (1.0-4.8) k/uL Lymphocytes # (Manual) (1.0-4.8) k/uL Macrocytosis Retic Count (0.5-2.0) % Sodium (137-145) mmol/L BUN (7-17) mg/dL Glucose (74-99) mg/dL POC Glucose (mg/dL) 117 H (75-99) mg/dL Lactate Dehydrogenase (120-246) U/L Total Protein (6.2-8.2) g/dL Albumin (3.80-4.90) g/dL Abdominal x-ray: report reviewed CT scan - pelvis: report reviewed Assessment and Plan (1) Polycythemia vera Current Visit: Yes Status: Acute Code(s): D45 - POLYCYTHEMIA VERA SNOMED Code(s): 713197142 (2) Dizziness Current Visit: Yes Status: Acute Code(s): R42 - DIZZINESS AND GIDDINESS SNOMED Code(s): 686504609 (3) Thrombocytosis Current Visit: Yes Status: Acute Code(s): D47.3 - ESSENTIAL (HEMORRHAGIC) THROMBOCYTHEMIA SNOMED Code(s): 4500147 (4) Vomiting Current Visit: Yes Status: Acute Code(s): R11.10 - VOMITING, UNSPECIFIED SNOMED Code(s): 203860308 Plan: Assessment and Recommendations: Myeloproliferative Disease: - Follows with Dr. Alfredo - Recently controlled on Hydrea although with decreasing WBC and Hemoglobin this was held on 08/17/20 Macrocytosis: - Work-up ordered - Hemolysis work-up, B12, Folate, MMA Thrombocytosis: - Platelets are greater than 1000K again and in a short period of time - Await work-up and likely restart Hydrea Sunday She was admitted with symptoms of N/V Dizzyness and overall not feeling well. In this picture of an immunocompromised patient a full septic work-up needs to be considered. Urinalysis with culture and blood cultures ordered. Although afebrile but with persistent leukopenia a fever may not present If above is negative and macrocytosis persists with Decreased persistent anemia and leukopenia a bone marrow biopsy will be considered.
[2020-08-29 15:39] LABS: Appearance,Urine Clear (Clear); Bilirubin,Urine Negative (Negative); Blood,Urine Negative (Negative); Color,Urine Light Yellow; Glucose,Urine (UA) Negative (Negative); Ketones,Urine Negative (Negative); Leukocyte Esterase,Urine Negative (Negative); Nitrite,Urine Negative (Negative); Protein,Urine Negative (Negative); Specific Gravity,Urine 1.011 (1.001-1.035); Urobilinogen,Urine <2.0 mg/dL (<2.0)
[2020-08-29 17:07] LABS: Glucose,Whole Blood 107 mg/dL (75-99)
[2020-08-29] MEDS: PANTOPRAZOLE 40 MG TABLET PO SCH (17:54)
--- NOTE | 2020-08-29 19:30 | P.CNNES ---
History of Present Illness Consult date: 08/29/20 Reason for Consult: dizziness History of Present Illness: The patient is a very pleasant 85-year-old female who is seen in neurologic consultation on August 29, 2020, via teleneurology. The patient reports that she came into the hospital because she was feeling very dizzy. She also was feeling nauseated. She had 1 episode of vomiting. She describes the dizziness as a combination of lightheadedness, ataxia and vertigo. She said that she was forced to hold onto the coyle while walking down the hallway. She said that if she had not held on, she would've fallen. Patient denies headache. The symptoms began Sunday morning. Patient also noted some difficulty with word finding. She denies hearing loss, tinnitus and ear pain. Patient does report a feeling of numbness and cold the involving all of her fingertips. Patient reports generalized weakness, which is getting worse. The patient says she is tired all the time. The patient denies any recent symptoms of upper respiratory infection. Patient does report "sinus" problems. CT scan performed in the emergency department revealed no signs of acute hemorrhage or infarct. There was a reported old lacunar infarct. 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 She feels she is under a lot of stress. She says that she is in her house 24/. She is frequently worried about whether her has plugged in any machinery that may injure him. He apparently is up at all hours of the night. Past Medical History Past Medical History: Coronary Artery Disease (CAD), Cancer, CVA/TIA, Diabetes Mellitus, Hyperlipidemia, Hypertension, Osteoarthritis (OA), Syncope Additional Past Medical History / Comment(s): LEUKEMIA, arterial blockage History of Any Multi-Drug Resistant Organisms: None Reported Past Surgical History: Bowel Resection, Tonsillectomy Additional Past Surgical History / Comment(s): RIGHT OVARY REMOVED, hi cataract surgery, bone marrow biopsy Past Anesthesia/Blood Transfusion Reactions: Motion Sickness Past Psychological History: No Psychological Hx Reported Smoking Status: Former smoker Past Alcohol Use History: None Reported Additional Past Alcohol Use History / Comment(s): smoked on and off [id number] 1ppd Past Drug Use History: None Reported - Past Family History Father Family Medical History: Cancer, Coronary Artery Disease (CAD) Sister(s) Family Medical History: No Reported History Son(s) Family Medical History: Cancer Additional Family Medical History / Comment(s): larynx cancer Daughter(s) Family Medical History: Cancer Mother Family Medical History: Coronary Artery Disease (CAD) Medications and Allergies Home Medications Medication Instructions Recorded Confirmed Type Isosorbide Mononitrate ER [Imdur] 30 mg PO DAILY 05/18/15 08/28/20 History amLODIPine BESYLATE [Norvasc] 5 mg PO HS 05/18/15 08/28/20 History atenoloL [Tenormin] 25 mg PO BID 05/18/15 08/28/20 History Acetaminophen Tab [Tylenol Tab] 1,000 mg PO Q6H PRN 08/28/20 08/28/20 History Atorvastatin [Lipitor] 20 mg PO DAILY 08/28/20 08/28/20 History Calcium Carbonate [Tums Ultra 1,177 mg PO DAILY@1500 08/28/20 08/28/20 History Strength] Clopidogrel [Plavix] 75 mg PO HS 08/28/20 08/28/20 History Hydrochlorothiazide 12.5mg Tab 12.5 mg PO DAILY 08/28/20 08/28/20 History Losartan Potassium 50 mg PO DAILY 08/28/20 08/28/20 History Propylene Glycol/Peg 400/Pf 1 drop BOTH EYES BID 08/28/20 08/28/20 History [Systane 0.3-0.4% Eye Drops] Psyllium Husk (with Sugar) 30 gm PO HS@2000 08/28/20 08/28/20 History [Metamucil Powder] Allergies Allergy/AdvReac Type Severity Reaction Status Date / Time caffeine Allergy BREAST Verified 08/28/20 19:12 TENDERNESS celecoxib [From Celebrex] Allergy Rash/Hives Verified 08/28/20 19:12 cortisone Allergy Nausea & Verified 08/28/20 19:12 Vomiting headache latex Allergy Rash/Hives Verified 08/28/20 19:12 Milk Containing Products Allergy constipatio Verified 08/28/20 19:12 [Dairy] n naproxen [From Naprosyn] Allergy Unknown Verified 08/28/20 19:12 piroxicam [From Feldene] Allergy Unknown Verified 08/28/20 19:12 Physical Examination - Vital Signs Vital Signs: Vital Signs Temp Pulse Pulse Resp BP BP BP 08/29/20 15:30 148/72 150/72 08/29/20 11:07 97.6 F 56 L 17 08/29/20 06:13 170/70 168/70 08/29/20 04:08 97.6 F 54 L 17 08/28/20 23:48 63 16 155/73 176/69 08/28/20 22:43 98.1 F 69 16 08/28/20 21:56 61 16 156/81 08/28/20 19:06 97.2 F L 65 18 191/85 BP BP Pulse Ox 08/29/20 15:30 132/66 08/29/20 11:07 119/60 95 08/29/20 06:13 164/73 08/29/20 04:08 130/67 96 08/28/20 23:48 150/61 97 08/28/20 22:43 173/75 96 08/28/20 21:56 98 08/28/20 19:06 100 Intake and Output 08/29/20 08/29/20 08/29/20 06:59 14:59 22:59 Intake Total 450 Balance 450 Intake: Intake, IV Titration 450 Amount Sodium Chloride 0.9% 1, 450 000 ml @ 75 mls/hr IV . [id number] [facility] Rx#:[id number] Other: Voiding Method Toilet # Voids 1 1 Gen.: The patient is reclining in the bed. She is well-nourished, well- developed and in no acute distress. HEENT: Head is atraumatic, normocephalic. Fundus not visualized. There is no scleral icterus. Mucous membranes are moist. Neck: Supple Heart: Regular rate and rhythm Extremities: Without edema Neurological examination Mental status: The patient is awake, alert and oriented 3. Her speech is clear. There is no dysarthria or aphasia. Cranial nerves: Pupils are equal at 3 mm and reactive. Visual bach are full to confrontation. Extraocular movements are intact. There is no nystagmus. Facial sensations intact. There is no facial asymmetry. Areas grossly intact. Uvula and palate are midline. Shoulder shrug is symmetric. Tongue protrudes midline. Motor: Strength is 5/5 throughout Coordination: Finger to nose and rapid alternating movements are intact Deep tendon reflexes: 2+/4+ in the bilateral upper extremities. 2-3+4+ at the knees. Sensation: Grossly intact to light touch Results - Laboratory Findings CBC and BMP: 08/29/20 06:06 08/29/20 06:06 Abnormal Lab Findings: Abnormal Labs 08/28/20 08/28/20 08/29/20 20:33 20:33 00:04 WBC RBC 2.19 L Hgb 9.4 L Hct 29.7 L MCV 135.8 H MCH 43.2 H RDW Plt Count 1135 H* D Lymphocytes # 0.7 L Lymphocytes # (Manual) Macrocytosis Marked A Retic Count 4.3 H Sodium 131 L BUN 23 H Glucose 129 H POC Glucose (mg/dL) Lactate Dehydrogenase Total Protein Albumin 08/29/20 08/29/20 08/29/20 00:04 06:06 06:06 WBC 3.5 L RBC 2.00 L Hgb 8.7 L Hct 27.9 L MCV 139.5 H MCH 43.6 H RDW 15.8 H Plt Count 1038 H* Lymphocytes # Lymphocytes # (Manual) 0.84 L Macrocytosis Marked A Retic Count Sodium BUN Glucose POC Glucose (mg/dL) Lactate Dehydrogenase 311 H Total Protein 5.5 L Albumin 3.70 L 08/29/20 08/29/20 11:20 17:04 WBC RBC Hgb Hct MCV MCH RDW Plt Count Lymphocytes # Lymphocytes # (Manual) Macrocytosis Retic Count Sodium BUN Glucose POC Glucose (mg/dL) 117 H 107 H Lactate Dehydrogenase Total Protein Albumin Assessment and Plan Assessment: 1. Probable benign positional vertigo, must rule out posterior circulation infarct 2. Anemia 3. Thrombocytosis 4. History of hypertension 5. History of TIA and CVA Plan: 1. I agree with MRI of brain 2. Agree with continuation of Plavix 3. 2-D echocardiogram 4. Lipid panel, hemoglobin A1c and TSH should be checked 5. Physical and occupational therapy evaluations 6. Suggested the patient call the [employer], for support. Phone number given to her Time with Patient: Greater than 30 (spent 45 minutes with the patient via teleneurology)
[2020-08-29] MEDS: PSYLLIUM HUSK 100% 6 GM PACKET PO SCH (19:51)
[2020-08-29 19:59] LABS: Glucose,Whole Blood 119 mg/dL (75-99)
[2020-08-29] MEDS: HEPARIN SODIUM,PORCINE 5,000 UNIT/ML 1 ML VIAL SQ SCH (21:54)
[2020-08-29] MEDS: CLOPIDOGREL 75 MG TAB PO SCH (21:54)
[2020-08-29] MEDS: amLODIPine 5 MG TAB PO SCH (21:54)
[2020-08-30 05:12] LABS: Basophils % (A) 0 %; Eosinophils % (A) 1 %; HCT 28.2 % (34.0-46.0); Hypochromasia Moderate; Lymphocytes # (A) 1.9 k/uL (1.0-4.8); Lymphocytes % (A) 46 %; MCHC 31.9 g/dL (31.0-37.0); MCV 137.6 fL (80.0-100.0); Macrocytosis Marked; Mean Platelet Volume 9.7; Monocytes # (A) 0.4 k/uL (0-1.0); Monocytes % (A) 10 %; Neutrophils # (A) 1.6 k/uL (1.3-7.7); Neutrophils % (A) 38 %; Platelet Count 885 k/uL (150-450); RBC 2.05 m/uL (3.80-5.40); RDW 15.4 % (11.5-15.5); WBC 4.1 k/uL (3.8-10.6)
[2020-08-30 05:45] LABS: MCH 43.9 pg (25.0-35.0)
[2020-08-30 06:11] LABS: Large Platelets Present
[2020-08-30 07:00] LABS: Glucose,Whole Blood 95 mg/dL (75-99)
[2020-08-30] MEDS: INSULIN ASPART (NovoLOG) 100 UNIT/ML VIAL SQ SCH ×3 (07:36→17:46)
[2020-08-30] MEDS: HEPARIN SODIUM,PORCINE 5,000 UNIT/ML 1 ML VIAL SQ SCH ×2 (09:10→21:26)
[2020-08-30] MEDS: hydroCHLOROthiazide 25 MG TAB PO SCH (09:11)
[2020-08-30] MEDS: PANTOPRAZOLE 40 MG TABLET PO SCH ×2 (09:12→17:46)
[2020-08-30] MEDS: ATORVASTATIN 20 MG TAB PO SCH (09:12)
[2020-08-30] MEDS: FLUTICASONE 50MCG/SPRAY NASAL 16GM EA NOSTRIL SCH (09:12)
[2020-08-30] MEDS: LOSARTAN 50 MG TAB PO SCH (09:12)
[2020-08-30] MEDS: ISOSORBIDE MONONITRATE ER 30 MG TAB.ER.24H PO SCH (09:12)
[2020-08-30] MEDS: atenoloL 25 MG TAB PO SCH ×3 (09:12→21:26)
[2020-08-30] MEDS: CYANOCOBALAMIN 1,000 MCG/ML 1 ML VIAL IM SCH (09:12)
[2020-08-30 10:54] LABS: Albumin 3.6 g/dL (3.80-4.90); Anion Gap 6.8 mmol/L (4.00-12.00); BUN/Creat Ratio 16.25 Ratio (12.00-20.00); Calcium 8.8 mg/dL (8.7-10.3); Carbon Dioxide 26.2 mmol/L (21.6-31.8); Globulin 1.8 g/dL (1.6-3.3); Non-African American GFR(CKD) 68.2 (60.0-200.0); Potassium 4.7 mmol/L (3.5-5.5); Total Bilirubin 0.9 mg/dL (0.2-1.2); Total Protein 5.4 g/dL (6.2-8.2)
[2020-08-30 11:14] LABS: Glucose,Whole Blood 111 mg/dL (75-99)
--- NOTE | 2020-08-30 16:09 | MR ---
EXAMINATION TYPE: MR brain and iac wo/w con DATE OF EXAM: 08/30/2020 COMPARISON: Correlation CT 08/28/2020 HISTORY: 85-year-old female dizziness TECHNIQUE: Multiplanar, multisequence images of the brain and brainstem were acquired before and aft er administration of 6 mL IV Gadavist. Diffusion weighted imaging was performed. Additional coned-d own sequences through the internal auditory canals and posterior cranial fossa before and after IV co ntrast administration. FINDINGS: Diffusion weighted images demonstrate no evidence of an acute ischemic lesion in the brain. T2/FLAIR weighted sequences show moderately extensive scattered burden of white white matter change p resent throughout the periventricular, deep, and subcortical white matter of both cerebral hemisphere s. Midline structures demonstrate partially empty sella but otherwise normal morphology. The craniocerv ical junction is normal. Moderate generalized volume loss. No hydrocephalus. Persistent origin right posterior cerebral artery. There is a bilentiform shaped homogeneously enhancing lesion along the left perimesencephalic cistern measuring 10 x 5 mm. Otherwise, no evidence of an acute infarct, mass effect, or an extra-axial flui d collection. There is no other cerebellopontine angle mass. The internal auditory canals are symmetric. Brainstem and skull base abnormalities are not seen. Post contrast images demonstrate no other evidence of pathologic enhancement in the posterior crania l fossa or the internal auditory canals. There is no abnormal enhancement of the labyrinths. Mild mucosal thickening within the ethmoid air cells. Globes are intact. IMPRESSION: 1. Moderate generalized cerebral atrophy and moderate to severe scattered burden of chronic small ves noni ischemic disease. No acute intracranial abnormality seen. 2. An elliptical, homogeneously enhancing extra-axial lesion along the left perimesencephalic cistern measuring 1.0 x 0.5 cm. The favored differential considerations include a meningioma and less likely a schwannoma along CN V. Six-month follow-up MRI recommended to reassess. 3. No other abnormal enhancing lesions.
[2020-08-30 17:16] LABS: Glucose,Whole Blood 110 mg/dL (75-99)
[2020-08-30 20:05] LABS: Chol/HDL Ratio 2.54
[2020-08-30 20:54] VITALS: TEMP 98.1
--- NOTE | 2020-08-30 21:18 | P.PN ---
Subjective Progress Note Date: 08/30/20 Patient was seen for a follow-up. Patient was seen in neurologic consultation yesterday, 08/29/[address] Garces. Please refer to her note for details. Patient came to the hospital with vertigo nausea vomiting that started the day prior in late morning. It started when she was sitting at the table. Room started spinning couldn't walk and was off balance. Patient states that she had history of a mini stroke in 2016 when she also had vertigo and difficulty with walking and staggering. She currently takes Plavix 75 mg. Patient states that she did have vertigo couple of months ago also. CT head in the ER was negative. On my review, the paranasal sinuses and external auditory canals are patent and clear. Carotid Doppler showed no significant stenosis. Antegrade flow in both vertebral arteries. Bilateral ICAs are tortuous distally. Patient had an MRI of brain with and without contrast today, which revealed moderate generalized cerebral atrophy and moderate to severe scattered burden of chronic small vessel ischemic disease. No acute intracranial abnormality. An elliptical homogenously enhancing extra-axial lesion along the left perimesencephalic cistern measuring 1.0 x 0.5 cm. The favored differential consideration includes meningioma and less likely a schwannoma along cranial nerve V. Six-month follow-up MRI is recommended. Patient's hemoglobin A1c 5.9, B12 is mildly low 242, folate 14.9, TSH is normal 1.13. Her hemoglobin is 9.0, hematocrit 28.2 and platelets 885. Objective - Vital Signs Vital signs: Vital Signs Temp 98.1 F 08/30/20 20:51 Pulse 62 08/30/20 20:51 Resp 18 08/30/20 20:51 BP 161/68 08/30/20 20:51 Pulse Ox 96 08/30/20 20:51 Intake & Output 08/30/20 08/30/20 08/31/20 06:59 18:59 06:59 Intake Total 600 Balance 600 Intake: Intake, IV Titration 600 Amount Sodium Chloride 0.9% 1, 600 000 ml @ 75 mls/hr IV . [id number] [facility] Rx#:[id number] Other: Voiding Method Toilet # Voids 1 1 - Exam Patient's mental status, speech and language functions are normal. Patient is fully oriented, knows it is August 2020 and that she is in [facility]. Speech and language functions are normal. Cranial nerves are normal. Muscle strength is normal. No ataxia for eunmpr-so-abaw testing. Tone and bulk of muscles normal. - Labs CBC & Chem 7: 08/30/20 03:53 08/30/20 03:53 Labs: Abnormal Lab Results - Last 24 Hours (Table) 08/29/20 08/30/20 08/30/20 Range/Units 00:04 03:53 03:53 RBC 2.05 L (3.80-5.40) m/uL Hgb 9.0 L (11.4-16.0) gm/dL Hct 28.2 L (34.0-46.0) % MCV 137.6 H (80.0-100.0) fL MCH 43.9 H (25.0-35.0) pg Plt Count 885 H (150-450) k/uL Macrocytosis Marked A Haptoglobin <8.0 L (31.2-198.0) mg/dL Sodium 133 L (135-145) mmol/L POC Glucose (mg/dL) (75-99) mg/dL Total Protein 5.4 L (6.2-8.2) g/dL Albumin 3.60 L (3.80-4.90) g/dL 08/30/20 08/30/20 Range/Units 11:13 17:15 RBC (3.80-5.40) m/uL Hgb (11.4-16.0) gm/dL Hct (34.0-46.0) % MCV (80.0-100.0) fL MCH (25.0-35.0) pg Plt Count (150-450) k/uL Macrocytosis Haptoglobin (31.2-198.0) mg/dL Sodium (135-145) mmol/L POC Glucose (mg/dL) 111 H 110 H (75-99) mg/dL Total Protein (6.2-8.2) g/dL Albumin (3.80-4.90) g/dL Microbiology - Last 24 Hours (Table) 08/29/20 14:23 Blood Culture - Preliminary Blood No Growth after 24 hours 08/29/20 14:32 Blood Culture - Preliminary Blood No Growth after 24 hours Assessment and Plan Assessment: * Intermittent episodes of vertigo, probably due to peripheral vestibular dysfunction. Doubt BPPV, as symptoms are not typically positional. * Abnormal brain MRI with evidence of possible meningioma versus schwannoma 10 x 5 mm, on the left side, along the left perimesencephalic cistern. * B12 deficiency * Anemia Plan: * Continue Antivert as needed. Patient says that she is 99% better. * Agree with parenteral B12 replacement. * Suggest outpatient follow-up with neurosurgery regarding left-sided meningioma versus schwannoma. * Also recommend outpatient ENT consultation for the VNG/ENG to evaluate for peripheral vestibular dysfunction, rule out Mnire's. * Neurologically clear.
[2020-08-30] MEDS: PSYLLIUM HUSK 100% 6 GM PACKET PO SCH (21:25)
[2020-08-30] MEDS: amLODIPine 5 MG TAB PO SCH (21:26)
[2020-08-30] MEDS: CLOPIDOGREL 75 MG TAB PO SCH (21:26)
--- NOTE | 2020-08-30 21:34 | P.PN ---
Subjective Progress Note Date: 08/30/20 Principal diagnosis: Thrpmbocytosis platelets improved, likely increased with possible infectious/inflammatory etiology Objective - Vital Signs Vital signs: Vital Signs Temp 98.1 F 08/30/20 20:51 Pulse 62 08/30/20 20:51 Resp 18 08/30/20 20:51 BP 161/68 08/30/20 20:51 Pulse Ox 96 08/30/20 20:51 Intake & Output 08/30/20 08/30/20 08/31/20 06:59 18:59 06:59 Intake Total 600 Balance 600 Intake: Intake, IV Titration 600 Amount Sodium Chloride 0.9% 1, 600 000 ml @ 75 mls/hr IV . [id number] [facility] Rx#:[id number] Other: Voiding Method Toilet # Voids 1 1 - Exam Constitutional General appearance: cooperative, no acute distress - EENT Eyes: EOMI, PERRLA ENT: hard of hearing, NA/AT, normal oropharynx - Neck Neck: normal ROM - Respiratory Respiratory: bilateral: CTA - Cardiovascular Rhythm: regular Heart sounds: normal: S1, S2 - Gastrointestinal General gastrointestinal: normal bowel sounds, soft, splenomegaly - Integumentary Integumentary: pale - Neurologic Neurologic: CNII-XII intact - Musculoskeletal Musculoskeletal: generalized weakness, strength equal bilaterally - Psychiatric Psychiatric: A&O x's 3, appropriate affect, intact judgment & insight - Labs CBC & Chem 7: 08/30/20 03:53 08/30/20 03:53 Labs: Abnormal Lab Results - Last 24 Hours (Table) 08/29/20 08/30/20 08/30/20 Range/Units 00:04 03:53 03:53 RBC 2.05 L (3.80-5.40) m/uL Hgb 9.0 L (11.4-16.0) gm/dL Hct 28.2 L (34.0-46.0) % MCV 137.6 H (80.0-100.0) fL MCH 43.9 H (25.0-35.0) pg Plt Count 885 H (150-450) k/uL Macrocytosis Marked A Haptoglobin <8.0 L (31.2-198.0) mg/dL Sodium 133 L (135-145) mmol/L POC Glucose (mg/dL) (75-99) mg/dL Total Protein 5.4 L (6.2-8.2) g/dL Albumin 3.60 L (3.80-4.90) g/dL 08/30/20 08/30/20 Range/Units 11:13 17:15 RBC (3.80-5.40) m/uL Hgb (11.4-16.0) gm/dL Hct (34.0-46.0) % MCV (80.0-100.0) fL MCH (25.0-35.0) pg Plt Count (150-450) k/uL Macrocytosis Haptoglobin (31.2-198.0) mg/dL Sodium (135-145) mmol/L POC Glucose (mg/dL) 111 H 110 H (75-99) mg/dL Total Protein (6.2-8.2) g/dL Albumin (3.80-4.90) g/dL Microbiology - Last 24 Hours (Table) 08/29/20 14:23 Blood Culture - Preliminary Blood No Growth after 24 hours 08/29/20 14:32 Blood Culture - Preliminary Blood No Growth after 24 hours Assessment and Plan (1) Polycythemia vera Current Visit: Yes Status: Acute Code(s): D45 - POLYCYTHEMIA VERA SNOMED Code(s): 836841337 (2) Dizziness Current Visit: Yes Status: Acute Code(s): R42 - DIZZINESS AND GIDDINESS SNOMED Code(s): 311281495 (3) Thrombocytosis Current Visit: Yes Status: Acute Code(s): D47.3 - ESSENTIAL (HEMORRHAGIC) THROMBOCYTHEMIA SNOMED Code(s): 3155730 (4) Vomiting Current Visit: Yes Status: Acute Code(s): R11.10 - VOMITING, UNSPECIFIED SNOMED Code(s): 367048385 Plan: Assessment and Recommendations: Myeloproliferative Disease: - Follows with Dr. Alfredo - Recently controlled on Hydrea although with decreasing WBC and Hemoglobin this was held on 08/17/20 Macrocytosis: - Work-up ordered - Hemolysis work-up, B12, Folate, MMA Thrombocytosis: - Platelets are improving with hydration, dehydration likely contributed to increase - Await full infectious work-up and repeat follow-up with Dr. Alfredo - Continue to hold Hydrea with leukopenia and anemia Physician Attest: I have completed the full history and physical and agree with above dictation, dictated as a scribe.
[2020-08-30 23:11] LABS: Glucose,Whole Blood 115 mg/dL (75-99)
[2020-08-31] MEDS: INSULIN ASPART (NovoLOG) 100 UNIT/ML VIAL SQ SCH ×2 (04:59→09:43)
[2020-08-31 05:36] LABS: HCT 28.5 % (34.0-46.0); HGB 9.2 gm/dL (11.4-16.0); Hypochromasia Moderate; MCHC 32.4 g/dL (31.0-37.0); MCV 135.1 fL (80.0-100.0); Macrocytosis Marked; Mean Platelet Volume 9.1; RBC 2.11 m/uL (3.80-5.40); RDW 15.3 % (11.5-15.5); WBC 4.9 k/uL (3.8-10.6)
[2020-08-31 05:39] LABS: MCH 43.8 pg (25.0-35.0)
[2020-08-31 05:42] LABS: Platelet Count 1137 k/uL (150-450)
[2020-08-31 05:55] VITALS: BP 138/71; PULSE 60; RESP 16
[2020-08-31 06:11] LABS: Band Neutrophils % 1 %; Large Platelets Present; Lymphocytes # (M) 1.57 k/uL (1.0-4.8); Monocytes # (M) 0.83 k/uL (0-1.0); Myelocytes % 2 %; Neutrophils % (M) 49 %; Nucleated Red Blood Cells 0 /100 WBC (0-0); Total Cells Counted 200
[2020-08-31 07:09] LABS: Glucose,Whole Blood 117 mg/dL (75-99)
--- NOTE | 2020-08-31 08:36 | P.PN ---
Subjective Progress Note Date: 08/30/20 History of present illness This is an 85-year-old pleasant lady whose patient of Dr. Bethel Villalta. Past medical history significant for hypertension, diabetes mellitus type 2, prior history of vertigo and syncope, coronary artery disease, CVA/TIA, hyperlipidemia, osteoarthritis, and hematology disorder and has been on Hydrea following with hematology for this. She did have a bone marrow biopsy in 2017. She presented to the emergency room yesterday with complaints of dizziness, weakness and not feeling well. The dizziness had been so severe she had been off balance and did have an episode of vomiting. Denies any visual changes weakness of upper or lower extremities difficulty in speech, facial droop. Reports she has some numbness in bilateral hands only. Orthostatics have been negative. Platelet count was 1135 on admission, hemoglobin 9.4, retake count 4.3. Patient was admitted with consults to neurology and Dr. Alfredo. Will order MRI of the brain and carotid to be done. 08/30: Patient denies having any new complaints. She is scheduled for an MRI today and if this is normal, plan to discharge home. Neurology recommends continuing Plavix. Echocardiogram lipid profile, A1c and TSH have been ordered. Neurology is recommended follow-up with [facility] outpatient. Carotid ultrasound showed no evidence of hemodynamically significant stenosis. WBC 4.1, hemoglobin 9, platelet count 885. Blood sugars running between 95 and 107. We will attempt to obtain MRI report today with possible discharge home. Review of systems CONSTITUTIONAL: Well-developed no acute respiratory distress. Denies fever, d enies chills. EYES: No icterus sclerae, no conjunctivitis. EARS, NOSE, MOUTH, THROAT, and FACE: No sore throat, lymphadenopathy, carotid bruits or deformity. RESPIRATORY: Negative dyspnea and shortness of breath and denies cough and wheezes. CARDIOVASCULAR: Negative PND orthopnea palpitation no angina significant fluid and water retention. GASTROINTESTINAL: No Abd pain, no nausea/ vomiting, no Diarrhea or constipation, No GI Bleed, no distention or masses. GENITOURINARY: Negative for Hematuria or UTI, no kidney stones. INTEGUMENT/BREAST: Negative for any muscular injury with mild osteoarthritis.. HEMATOLOGIC/LYMPHATIC: Negative for bleed or purpura. MUSCULOSKELTAL: Negative for Myalgia or arthralgia. NEURLOGICAL: No LOC, Sz or syncope, blurred vision, dizziness reports room is spinning with mild numbness in fingers BEHAVIORAL/PSYCH: Negative. ENDOCRINE: Negative. Physical examination General Appearance: Alert, cooperative, no distress, appears stated age. Neck HEENT: Supple, no lymphadenopathy, no thyroid enlargement, no carotid bruits. Lungs: Lung sounds clear to auscultation, no wheezes or rhonchi noted Chest Wall: Normal expansion with deep inspiration no tenderness and no deformity was found on exam, no costochondral pain or discomfort. Heart: regular rate and rhythm, S1, S2. No abnormal heart sounds S3, murmur or click Back: Symmetric, no curvature, ROM normal, no CVA tenderness. Abdomen: Soft, non-tender, bowel sounds active all four quadrants, no masses, no organomegaly. Extremities: Extremities normal, atraumatic, no cyanosis Pulses: 2+ and symmetric. Skin: Skin color, texture, tugor normal, no rashes or lesions. Neurologic: Alert oriented x3 cranial nerves II through XII intact, no motor deficit, no abnormal balance or gait. Mild nystagmus lateralized right side Assessment and plan 1. Recurrent vertigo which is precipitated with moving forward and standing up. MRI of the brain today. Neurology is recommending continuing Plavix, echocardiogram, lipid panel, A1c and TSH. 2. History of TIA continue Plavix 75 mg daily 2. History of diabetes mellitus type 2 currently diet controlled, on NovoLog sliding scale 3. Hypertension on Norvasc 5 mg ,losartan HCTZ 50/12.5mg, Imdur 30mg, and ateno lol 25 mg twice a day continue to monitor for orthostatics. monitor for any arrhythmias patient's to maintain on telemetry 4. CAD on Imdur. Plavix losartan HCTZ amlodipine Tenormin and Lipitor no changes made 5. Hyperlipidemia on Lipitor 20 mg daily 6. Osteo-arthritis. Tylenol as needed 7. Hematology disorder with anemia. History bone marrow biopsy in 2017 was on on maintenance Hydrea, with consults to Dr. Alfredo. We'll check a stool for Occult. 8. History of constipation. On Metamucil 9. DVT prophylaxis: On heparin subcu 12 GI prophylaxis: 10. GI prophylaxis Patient will continue on PPI 11. Myeloproliferative disease under the care of Dr. Alfredo. Oncology workup in process. Patient is on vitamin B12 injections. Hydrea is currently on hold. CODE STATUS: Full code. Discharge plan Home Impression and plan of care have been directed as dictated by the signing physician. Odilia Xiong nurse practitioner acting as scribe for signing physician. Objective - Vital Signs Vital signs: Vital Signs Temp 98.2 F 08/30/20 04:48 Pulse 54 L 08/30/20 04:48 Resp 16 08/30/20 04:48 BP 138/60 08/30/20 04:48 Pulse Ox 96 08/30/20 04:48 Intake & Output 08/29/20 08/30/20 08/30/20 18:59 06:59 18:59 Intake Total 600 Balance 600 Intake: Intake, IV Titration 600 Amount Sodium Chloride 0.9% 1, 600 000 ml @ 75 mls/hr IV . [id number] [facility] Rx#:[id number] Other: Voiding Method Toilet # Voids 1 1 - Labs CBC & Chem 7: 08/31/20 04:49 08/30/20 03:53 Labs: Abnormal Lab Results - Last 24 Hours (Table) 08/29/20 08/29/20 08/29/20 Range/Units 00:04 06:06 06:06 RBC (3.80-5.40) m/uL Hgb (11.4-16.0) gm/dL Hct (34.0-46.0) % MCV (80.0-100.0) fL MCH (25.0-35.0) pg Plt Count (150-450) k/uL Lymphocytes # (Manual) 0.84 L (1.0-4.8) k/uL Macrocytosis POC Glucose (mg/dL) (75-99) mg/dL Lactate Dehydrogenase 311 H (120-246) U/L Total Protein 5.5 L (6.2-8.2) g/dL Albumin 3.70 L (3.80-4.90) g/dL 08/29/20 08/29/20 08/29/20 Range/Units 11:20 17:04 19:50 RBC (3.80-5.40) m/uL Hgb (11.4-16.0) gm/dL Hct (34.0-46.0) % MCV (80.0-100.0) fL MCH (25.0-35.0) pg Plt Count (150-450) k/uL Lymphocytes # (Manual) (1.0-4.8) k/uL Macrocytosis POC Glucose (mg/dL) 117 H 107 H 119 H (75-99) mg/dL Lactate Dehydrogenase (120-246) U/L Total Protein (6.2-8.2) g/dL Albumin (3.80-4.90) g/dL 08/30/20 Range/Units 03:53 RBC 2.05 L (3.80-5.40) m/uL Hgb 9.0 L (11.4-16.0) gm/dL Hct 28.2 L (34.0-46.0) % MCV 137.6 H (80.0-100.0) fL MCH 43.9 H (25.0-35.0) pg Plt Count 885 H (150-450) k/uL Lymphocytes # (Manual) (1.0-4.8) k/uL Macrocytosis Marked A POC Glucose (mg/dL) (75-99) mg/dL Lactate Dehydrogenase (120-246) U/L Total Protein (6.2-8.2) g/dL Albumin (3.80-4.90) g/dL
[2020-08-31 09:22] LABS: African American GFR (CKD) 68.5 (60.0-200.0); Albumin 3.7 g/dL (3.80-4.90); Albumin/Globulin Ratio 2.18 (1.60-3.17); Anion Gap 8.4 mmol/L (4.00-12.00); BUN/Creat Ratio 16.67 Ratio (12.00-20.00); Carbon Dioxide 26.6 mmol/L (21.6-31.8); Globulin 1.7 g/dL (1.6-3.3); Non-African American GFR(CKD) 59.1 (60.0-200.0); Potassium 4.3 mmol/L (3.5-5.5); Total Bilirubin 0.7 mg/dL (0.3-1.2); Total Protein 5.4 g/dL (6.2-8.2)
[2020-08-31] MEDS: atenoloL 25 MG TAB PO SCH (09:52)
[2020-08-31] MEDS: CYANOCOBALAMIN 1,000 MCG/ML 1 ML VIAL IM SCH (09:52)
[2020-08-31] MEDS: HEPARIN SODIUM,PORCINE 5,000 UNIT/ML 1 ML VIAL SQ SCH (09:52)
[2020-08-31] MEDS: ATORVASTATIN 20 MG TAB PO SCH (09:53)
[2020-08-31] MEDS: LOSARTAN 50 MG TAB PO SCH (09:53)
[2020-08-31] MEDS: PANTOPRAZOLE 40 MG TABLET PO SCH (09:53)
[2020-08-31] MEDS: ISOSORBIDE MONONITRATE ER 30 MG TAB.ER.24H PO SCH (09:53)
[2020-08-31] MEDS: hydroCHLOROthiazide 25 MG TAB PO SCH (09:53)
[2020-08-31] MEDS: FLUTICASONE 50MCG/SPRAY NASAL 16GM EA NOSTRIL SCH (09:54)
--- NOTE | 2020-08-31 15:06 | P.DS ---
Providers Date of admission: 08/28/20 21:35 Expected date of discharge: 08/31/20 Attending physician: Mary Pascal Consults: 08/28/20 21:50 Consult Physician Routine Consulting Provider: Vielka Garces Consult Reason/Comments: dizziness Do you want consulting provider notified?: Yes 08/28/20 21:51 Consult Physician Routine Consulting Provider: Marco Antonio Alfredo Consult Reason/Comments: Thrombocytosis, dizziness Do you want consulting provider notified?: Yes [facility]: History of present illness This is an 85-year-old pleasant lady whose patient of Dr. Bethel Villalta. Past medical history significant for hypertension, diabetes mellitus type 2, prior history of vertigo and syncope, coronary artery disease, CVA/TIA, hyperlipidemia, osteoarthritis, and hematology disorder and has been on Hydrea following with hematology for this. She did have a bone marrow biopsy in 2017. She presented to the emergency room yesterday with complaints of dizziness, weakness and not feeling well. The dizziness had been so severe she had been off balance and did have an episode of vomiting. Denies any visual changes weakness of upper or lower extremities difficulty in speech, facial droop. Reports she has some numbness in bilateral hands only. Orthostatics have been negative. Platelet count was 1135 on admission, hemoglobin 9.4, retake count 4.3. Patient was admitted with consults to neurology and Dr. Alfredo. Will order MRI of the brain and carotid to be done. 08/30: Patient denies having any new complaints. She is scheduled for an MRI today and if this is normal, plan to discharge home. Neurology recommends continuing Plavix. Echocardiogram lipid profile, A1c and TSH have been ordered. Neurology is recommended follow-up with [facility] outpatient. Carotid ultrasound showed no evidence of hemodynamically significant stenosis. WBC 4.1, hemoglobin 9, platelet count 885. Blood sugars running between 95 and 107. We will attempt to obtain MRI report today with possible discharge home. 08/31:MRI of the brain revealed moderate generalized cerebral atrophy and moderate to severe scattered burden of chronic small vessel ischemic change. No acute intracranial abnormality. 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 differential consideration includes meningioma and less likely a schwannoma along cranial nerve V. Six-month follow-up MRI is recommended. A1c 5.9, B12 is mildly low 242, folate 14.9, TSH is normal 1.13. Her hemoglobin is 9.0, hematocrit 28.2 and platelets 885. Results of MRI reviewed with the patient. Dr. Beltran recommends ENT outpatient follow-up for VNG/ENG to evaluate for peripheral vestibular dysfunction, rule out Mnire's and neurosurgery follow up regarding left-sided meningioma versus schwannoma. Discussed plan with Dr. Prince and he recommends holding Hydrea and patient will follow-up with Dr. Alfredo in the office and determination will be made at that time whether to resume. Patient will be discharged home today in stable condition. Assessment and plan 1. Recurrent vertigo which is precipitated with moving forward and standing up. 2. History of TIA. 2. History of diabetes mellitus type 2 currently diet controlled. 3. Hypertension. 4. CAD. 5. Hyperlipidemia. 6. Osteo-arthritis. 7. Myeloproliferative disease 8. History of constipation. Discharge plan Home Impression and plan of care have been directed as dictated by the signing physician. Odilia Xiong nurse practitioner acting as scribe for signing physician. Patient Condition at Discharge: Good Plan - Discharge Summary Discharge Rx Participant: No New Discharge Prescriptions: New Meclizine [Antivert] 25 mg PO TID PRN tab PRN Reason: Vertigo Fluticasone Nasal [place] [Flonase Nasal [place]] 2 spray EA NOSTRIL DAILY spr Continue amLODIPine BESYLATE [Norvasc] 5 mg PO HS Isosorbide Mononitrate ER [Imdur] 30 mg PO DAILY atenoloL [Tenormin] 25 mg PO BID Acetaminophen Tab [Tylenol] 1,000 mg PO Q6H PRN PRN Reason: Pain Psyllium Husk (with Sugar) [Metamucil Powder] 30 gm PO HS@2000 Propylene Glycol/Peg 400/Pf [Systane 0.3-0.4% Eye Drop] 1 drop BOTH EYES BID Calcium Carbonate [Tums Ultra Strength] 1,177 mg PO DAILY@1500 Losartan Potassium 50 mg PO DAILY Hydrochlorothiazide 12.5mg Tab 12.5 mg PO DAILY Clopidogrel [Plavix] 75 mg PO HS Atorvastatin [Lipitor] 20 mg PO DAILY Discharge Medication List Isosorbide Mononitrate ER [Imdur] 30 mg PO DAILY 05/18/15 [History] amLODIPine BESYLATE [Norvasc] 5 mg PO HS 05/18/15 [History] atenoloL [Tenormin] 25 mg PO BID 05/18/15 [History] Acetaminophen Tab [Tylenol] 1,000 mg PO Q6H PRN 08/28/20 [History] Atorvastatin [Lipitor] 20 mg PO DAILY 08/28/20 [History] Calcium Carbonate [Tums Ultra Strength] 1,177 mg PO DAILY@1500 08/28/20 [History] Clopidogrel [Plavix] 75 mg PO HS 08/28/20 [History] Hydrochlorothiazide 12.5mg Tab 12.5 mg PO DAILY 08/28/20 [History] Losartan Potassium 50 mg PO DAILY 08/28/20 [History] Propylene Glycol/Peg 400/Pf [Systane 0.3-0.4% Eye Drop] 1 drop BOTH EYES BID 08/28/20 [History] Psyllium Husk (with Sugar) [Metamucil Powder] 30 gm PO HS@2000 08/28/20 [History] Fluticasone Nasal [place] [Flonase Nasal [place]] 2 spray EA NOSTRIL DAILY spr 11/07 [Rx] Meclizine [Antivert] 25 mg PO TID PRN tab 08/30/20 [Rx] Follow up Appointment(s)/Referral(s): Jose Villalta MD [Primary Care Provider] - 1 Week Marco Antonio Alfredo MD [STAFF PHYSICIAN] - 1 Week Patient Instructions/Handouts: Meclizine (By mouth), Dizziness (ED) Activity/Diet/Wound Care/Special Instructions: OP Neurosurgeon follow up to be set up by Dr. Villalta. Discharge Disposition: HOME SELF-CARE
== END 2020-08-31 11:00 | disposition home or self-care (01) ==
LOC: EC 18:59 → INTOOBSV 21:35 → 6NMEDSUR 21:35 → OBSVTOIN 21:35 → UNDODISOB 08-31 11:00 → UNDODISIN 08-31 11:00
PROVIDERS: ADMIT Family Medicine; ATTEND Family Medicine
DX: R42 Dizziness and giddiness (principal); C94.6 Myelodysplastic disease, not elsewhere classified; D45 Polycythemia vera; D47.3 Essential (hemorrhagic) thrombocythemia; D51.9 Vitamin B12 deficiency anemia, unspecified; E11.9 Type 2 diabetes mellitus without complications; E78.5 Hyperlipidemia, unspecified; I10 Essential (primary) hypertension; I25.10 Atherosclerotic heart disease of native coronary artery without angina pectoris; K44.9 Diaphragmatic hernia without obstruction or gangrene; K59.00 Constipation, unspecified; L29.9 Pruritus, unspecified; R20.0 Anesthesia of skin; R63.0 Anorexia; R27.0 Ataxia, unspecified; M19.90 Unspecified osteoarthritis, unspecified site; R11.2 Nausea with vomiting, unspecified; Z79.02 Long term (current) use of antithrombotics/antiplatelets; Z79.899 Other long term (current) drug therapy; Z88.6 Allergy status to analgesic agent; Z88.8 Allergy status to other drugs, medicaments and biological substances; Z91.040 Latex allergy status; Z91.011 Allergy to milk products; Z86.73 Personal history of transient ischemic attack (TIA), and cerebral infarction without residual deficits; Z87.891 Personal history of nicotine dependence; Z90.721 Acquired absence of ovaries, unilateral; Z90.49 Acquired absence of other specified parts of digestive tract; Z98.42 Cataract extraction status, left eye; Z98.41 Cataract extraction status, right eye; Z80.2 Family history of malignant neoplasm of other respiratory and intrathoracic organs; Z82.49 Family history of ischemic heart disease and other diseases of the circulatory system; Z80.9 Family history of malignant neoplasm, unspecified
CPT/HCPCS: 96361 ×3; 96372 ×3; 96360; 99285; 36415; 93005; 97530; 97161; 97535; 97166; 83921; 80061; 80053 ×4; 84443; 82607; 82728; 82746; 83540; 83550; 83615; 83735; 84484; 85025 ×4; 85610; 85045; 85730; 81003; 87040; 83010; 83036; 71046; 93880; 70450; 70553; G0378 ×4; J3420 ×3; J1644 ×3; A9585

== ENCOUNTER → 2020-12-09 | Outpatient (CLI) | payer MEDICARE ==
--- NOTE | 2020-12-10 14:38 | MM ---
Reason for exam: screening (asymptomatic). Last mammogram was performed 1 year ago. History: Patient is postmenopausal and history of other cancer. Benign excisional biopsy. Physical Findings: A clinical breast exam by your physician is recommended on an annual basis and results should be correlated with mammographic findings. MG 3D Screening Mammo W/Cad Bilateral CC and MLO view(s) were taken. Prior study comparison: November 28, 2019, bilateral MG 3d screening mammo w/cad. October 31, 2018, bilateral MG 3d screening mammo w/cad. The breast tissue is heterogeneously dense. This may lower the sensitivity of mammography. There is no discrete abnormality. ASSESSMENT: Negative, BI-RAD 1 RECOMMENDATION: Routine screening mammogram of both breasts in 1 year.
== END | disposition home or self-care (01) ==
LOC: RADMAMWWP 11:54
PROVIDERS: ATTEND Family Medicine
DX: Z12.31 Encounter for screening mammogram for malignant neoplasm of breast (principal)
CPT/HCPCS: 77063; 77067

== ENCOUNTER → 2022-01-09 | Outpatient (CLI) | payer MEDICARE ==
--- NOTE | 2022-01-11 14:05 | MM ---
Reason for exam: screening (asymptomatic). Last mammogram was performed 1 year and 1 month ago. History: Patient is postmenopausal and history of other cancer. Benign excisional biopsy. Physical Findings: A clinical breast exam by your physician is recommended on an annual basis and results should be correlated with mammographic findings. MG 3D Screening Mammo W/Cad Bilateral CC and MLO view(s) were taken. Prior study comparison: December 09, 2020, bilateral MG 3d screening mammo w/cad. November 28, 2019, bilateral MG 3d screening mammo w/cad. The breast tissue is heterogeneously dense. This may lower the sensitivity of mammography. No significant changes when compared with prior studies. ASSESSMENT: Benign, BI-RAD 2 RECOMMENDATION: Routine screening mammogram of both breasts in 1 year.
== END | disposition home or self-care (01) ==
LOC: RADMAMWWP 14:09
PROVIDERS: ATTEND Family Medicine
DX: Z12.31 Encounter for screening mammogram for malignant neoplasm of breast (principal); Z78.0 Asymptomatic menopausal state
CPT/HCPCS: 77063; 77067

== ENCOUNTER 2022-04-10 08:24 | Inpatient (IN) | payer MEDICARE ==
[2022-04-10] MEDS ORDERED: SODIUM CHLORIDE 0.9% 500 ML 500 ML IV STA (08:46)
--- NOTE | 2022-04-10 08:49 | ED ---
General Adult HPI - General Chief complaint: Weakness Stated complaint: Weakness Time Seen by Provider: 04/10/22 08:30 Source: patient, RN notes reviewed, old records reviewed Mode of arrival: ambulatory Limitations: no limitations - History of Present Illness Initial comments: This is an 86-year-old female presents emergency department because she was tired and weak this morning and she states that she feels a little short of breath even though she's actually 100% on room air. Patient states she does have a little bit of a history of anxiety. Patient doesn't remember any of her medications. Patient denies fever chills per patient denies difficulty breathing shortness of breath. Patient denies any chest pain or palpitations. Patient denies abdominal pain patient has nausea vomiting diarrhea. Patient denies any cough. Patient thinks she didn't take any of her medications this morning. Patient also mentioned she had a history of stroke 6 years ago - Related Data Home Medications Medication Instructions Recorded Confirmed Isosorbide Mononitrate ER [Imdur] 30 mg PO DAILY 05/18/15 04/10/22 amLODIPine BESYLATE [Norvasc] 5 mg PO DAILY 05/18/15 04/10/22 atenoloL [Tenormin] 25 mg PO BID 05/18/15 04/10/22 Acetaminophen Tab [Tylenol] 1,000 mg PO Q6H PRN 08/28/20 04/10/22 Atorvastatin [Lipitor] 20 mg PO DAILY 08/28/20 04/10/22 Calcium Carbonate [Tums Ultra 1,177 mg PO DAILY 08/28/20 04/10/22 Strength] Clopidogrel [Plavix] 75 mg PO DAILY 08/28/20 04/10/22 Hydrochlorothiazide 12.5mg Tab 12.5 mg PO DAILY 08/28/20 04/10/22 Propylene Glycol/Peg 400/Pf 1 drop BOTH EYES BID 08/28/20 04/10/22 [Systane 0.3-0.4% Eye Drop] Psyllium Husk (with Sugar) 30 gm PO DAILY 08/28/20 04/10/22 [Metamucil Powder] Acyclovir 400 mg PO BID 04/10/22 04/10/22 Cyanocobalamin [Vitamin B-12] 500 mcg PO DAILY 04/10/22 04/10/22 Ruxolitinib Phosphate [Jakafi] 20 mg PO BID 04/10/22 04/10/22 Allergies Allergy/AdvReac Type Severity Reaction Status Date / Time celecoxib [From Celebrex] Allergy Rash/Hives Verified 04/10/22 09:27 latex Allergy Rash/Hives Verified 04/10/22 09:27 naproxen [From Naprosyn] Allergy Unknown Verified 04/10/22 09:27 piroxicam [From Feldene] Allergy Unknown Verified 04/10/22 09:27 caffeine AdvReac BREAST Verified 04/10/22 09:27 TENDERNESS cortisone AdvReac Nausea & Verified 04/10/22 09:27 Vomiting headache Milk Containing Products AdvReac constipatio Verified 04/10/22 09:27 [Dairy] n Review of Systems ROS Statement: Those systems with pertinent positive or pertinent negative responses have been documented in the HPI. ROS Other: All systems not noted in ROS Statement are negative. Past Medical History Past Medical History: Coronary Artery Disease (CAD), Cancer, CVA/TIA, Diabetes Mellitus, Hyperlipidemia, Hypertension, Osteoarthritis (OA), Syncope Additional Past Medical History / Comment(s): LEUKEMIA, arterial blockage History of Any Multi-Drug Resistant Organisms: None Reported Past Surgical History: Bowel Resection, Tonsillectomy Additional Past Surgical History / Comment(s): RIGHT OVARY REMOVED, hi cataract surgery, bone marrow biopsy Past Anesthesia/Blood Transfusion Reactions: Motion Sickness Past Psychological History: No Psychological Hx Reported Smoking Status: Former smoker Past Alcohol Use History: None Reported Past Drug Use History: None Reported - Past Family History Father Family Medical History: Cancer, Coronary Artery Disease (CAD) Sister(s) Family Medical History: No Reported History Son(s) Family Medical History: Cancer Additional Family Medical History / Comment(s): larynx cancer Daughter(s) Family Medical History: Cancer Mother Family Medical History: Coronary Artery Disease (CAD) General Exam - General Exam Comments Initial Comments: GENERAL: Patient is well-developed and well-nourished. Patient is nontoxic and well- hydrated and is in no acute distress. Patient very tired when talking to her but she is able to answer all questions ENT: Neck is soft and supple. No significant lymphadenopathy is noted. Oropharynx is clear. Moist mucous membranes. Neck has full range of motion without eliciting any pain. EYES: The sclera were anicteric and conjunctiva were pink and moist. Extraocular movements were intact and pupils were equal round and reactive to light. Eyelids were unremarkable. PULMONARY: Unlabored respirations. Good breath sounds bilaterally. No audible rales rhonchi or wheezing was noted. CARDIOVASCULAR: The patient was bradycardic at about 55 bpm ABDOMEN: Soft and nontender with normal bowel sounds. SKIN: Skin is clear with no lesions or rashes and otherwise unremarkable. NEUROLOGIC: Patient is alert and oriented x3. Cranial nerves II through XII are grossly intact. Motor and sensory are also intact. Normal speech, volume and content. Symmetrical smile. MUSCULOSKELETAL: Normal extremities with adequate strength and full range of motion. LYMPHATICS: No significant lymphadenopathy is noted PSYCHIATRIC: Normal psychiatric evaluation. Limitations: no limitations Course Vital Signs 04/10/22 08:30 Temperature 97.4 F L Pulse Rate 54 L Respiratory 20 Rate Blood Pressure 192/88 O2 Sat by Pulse 99 Oximetry Medical Decision Making - Medical Decision Making EKG shows sinus bradycardia 51 bpm TX interval 184 QRS is 96 Q-T intervals 43 QTC is 461. Patient's EKG shows no ST segment elevation or depression. Chest x-ray shows no acute normalities. Patient had a low sodium of 120. I spoke with Dr. Villalta he agreed to admit the patient admitted the patient wrote admitting orders. - Lab Data Result diagrams: 04/10/22 08:55 04/10/22 08:55 Lab Results 04/10/22 04/10/22 04/10/22 Range/Units 08:55 08:55 08:55 WBC 11.0 H (3.8-10.6) k/uL RBC 3.42 L (3.80-5.40) m/uL Hgb 11.1 L (11.4-16.0) gm/dL Hct 33.0 L (34.0-46.0) % MCV 96.7 (80.0-100.0) fL MCH 32.4 (25.0-35.0) pg MCHC 33.5 (31.0-37.0) g/dL RDW 16.9 H (11.5-15.5) % Plt Count 723 H (150-450) k/uL MPV 8.9 Neutrophils % 78 % Lymphocytes % 12 % Monocytes % 6 % Eosinophils % 1 % Basophils % 1 % Neutrophils # 8.6 H (1.3-7.7) k/uL Lymphocytes # 1.3 (1.0-4.8) k/uL Monocytes # 0.6 (0-1.0) k/uL Eosinophils # 0.1 (0-0.7) k/uL Basophils # 0.1 (0-0.2) k/uL Anisocytosis Slight PT 9.9 (9.0-12.0) sec INR 0.9 (<1.2) APTT 23.7 (22.0-30.0) sec Sodium 120 L (137-145) mmol/L Potassium 4.3 (3.5-5.1) mmol/L Chloride 87 L (98-107) mmol/L Carbon Dioxide 23 (22-30) mmol/L Anion Gap 10 mmol/L BUN 15 (7-17) mg/dL Creatinine 0.73 (0.52-1.04) mg/dL Est GFR (CKD-EPI)AfAm 88 (>60 ml/min/1.73 sqM) Est GFR (CKD-EPI)NonAf 76 (>60 ml/min/1.73 sqM) Glucose 128 H (74-99) mg/dL Plasma Lactic Acid Terrell (0.7-2.0) mmol/L Calcium 9.3 (8.4-10.2) mg/dL Magnesium 1.9 (1.6-2.3) mg/dL Total Bilirubin 1.8 H (0.2-1.3) mg/dL AST 33 (14-36) U/L ALT 18 (4-34) U/L Alkaline Phosphatase 72 (38-126) U/L Troponin I (0.000-0.034) ng/mL NT-Pro-B Natriuret Pep pg/mL Total Protein 7.2 (6.3-8.2) g/dL Albumin 4.7 (3.5-5.0) g/dL Urine Color Urine Appearance (Clear) Urine pH (5.0-8.0) Ur Specific [place] (1.001-1.035) Urine Protein (Negative) Urine Glucose (UA) (Negative) Urine Ketones (Negative) Urine Blood (Negative) Urine Nitrite (Negative) Urine Bilirubin (Negative) Urine Urobilinogen (<2.0) mg/dL Ur Leukocyte Esterase (Negative) 04/10/22 04/10/22 04/10/22 Range/Units 08:55 08:55 08:55 WBC (3.8-10.6) k/uL RBC (3.80-5.40) m/uL Hgb (11.4-16.0) gm/dL Hct (34.0-46.0) % MCV (80.0-100.0) fL MCH (25.0-35.0) pg MCHC (31.0-37.0) g/dL RDW (11.5-15.5) % Plt Count (150-450) k/uL MPV Neutrophils % % Lymphocytes % % Monocytes % % Eosinophils % % Basophils % % Neutrophils # (1.3-7.7) k/uL Lymphocytes # (1.0-4.8) k/uL Monocytes # (0-1.0) k/uL Eosinophils # (0-0.7) k/uL Basophils # (0-0.2) k/uL Anisocytosis PT (9.0-12.0) sec INR (<1.2) APTT (22.0-30.0) sec Sodium (137-145) mmol/L Potassium (3.5-5.1) mmol/L Chloride (98-107) mmol/L Carbon Dioxide (22-30) mmol/L Anion Gap mmol/L BUN (7-17) mg/dL Creatinine (0.52-1.04) mg/dL Est GFR (CKD-EPI)AfAm (>60 ml/min/1.73 sqM) Est GFR (CKD-EPI)NonAf (>60 ml/min/1.73 sqM) Glucose (74-99) mg/dL Plasma Lactic Acid Terrell 2.2 H* (0.7-2.0) mmol/L Calcium (8.4-10.2) mg/dL Magnesium (1.6-2.3) mg/dL Total Bilirubin (0.2-1.3) mg/dL AST (14-36) U/L ALT (4-34) U/L Alkaline Phosphatase (38-126) U/L Troponin I 0.013 (0.000-0.034) ng/mL NT-Pro-B Natriuret Pep 1350 pg/mL Total Protein (6.3-8.2) g/dL Albumin (3.5-5.0) g/dL Urine Color Urine Appearance (Clear) Urine pH (5.0-8.0) Ur Specific [place] (1.001-1.035) Urine Protein (Negative) Urine Glucose (UA) (Negative) Urine Ketones (Negative) Urine Blood (Negative) Urine Nitrite (Negative) Urine Bilirubin (Negative) Urine Urobilinogen (<2.0) mg/dL Ur Leukocyte Esterase (Negative) 04/10/22 Range/Units 10:40 WBC (3.8-10.6) k/uL RBC (3.80-5.40) m/uL Hgb (11.4-16.0) gm/dL Hct (34.0-46.0) % MCV (80.0-100.0) fL MCH (25.0-35.0) pg MCHC (31.0-37.0) g/dL RDW (11.5-15.5) % Plt Count (150-450) k/uL MPV Neutrophils % % Lymphocytes % % Monocytes % % Eosinophils % % Basophils % % Neutrophils # (1.3-7.7) k/uL Lymphocytes # (1.0-4.8) k/uL Monocytes # (0-1.0) k/uL Eosinophils # (0-0.7) k/uL Basophils # (0-0.2) k/uL Anisocytosis PT (9.0-12.0) sec INR (<1.2) APTT (22.0-30.0) sec Sodium (137-145) mmol/L Potassium (3.5-5.1) mmol/L Chloride (98-107) mmol/L Carbon Dioxide (22-30) mmol/L Anion Gap mmol/L BUN (7-17) mg/dL Creatinine (0.52-1.04) mg/dL Est GFR (CKD-EPI)AfAm (>60 ml/min/1.73 sqM) Est GFR (CKD-EPI)NonAf (>60 ml/min/1.73 sqM) Glucose (74-99) mg/dL Plasma Lactic Acid Terrell (0.7-2.0) mmol/L Calcium (8.4-10.2) mg/dL Magnesium (1.6-2.3) mg/dL Total Bilirubin (0.2-1.3) mg/dL AST (14-36) U/L ALT (4-34) U/L Alkaline Phosphatase (38-126) U/L Troponin I (0.000-0.034) ng/mL NT-Pro-B Natriuret Pep pg/mL Total Protein (6.3-8.2) g/dL Albumin (3.5-5.0) g/dL Urine Color Light Yellow Urine Appearance Clear (Clear) Urine pH 7.5 (5.0-8.0) Ur Specific [place] 1.008 (1.001-1.035) Urine Protein Negative (Negative) Urine Glucose (UA) Negative (Negative) Urine Ketones Negative (Negative) Urine Blood Negative (Negative) Urine Nitrite Negative (Negative) Urine Bilirubin Negative (Negative) Urine Urobilinogen <2.0 (<2.0) mg/dL Ur Leukocyte Esterase Negative (Negative) Disposition Clinical Impression: Generalized weakness, Hyponatremia Disposition: ADMITTED IP TO THIS [facility] Referrals: Juan Villalta MD [Primary Care Provider] - 1-2 days Time of Disposition: 11:14
[2022-04-10 09:15] LABS: Anisocytosis Slight; Basophils # (A) 0.1 k/uL (0-0.2); Basophils % (A) 1 %; Eosinophils # (A) 0.1 k/uL (0-0.7); Eosinophils % (A) 1 %; HGB 11.1 gm/dL (11.4-16.0); Lymphocytes # (A) 1.3 k/uL (1.0-4.8); Lymphocytes % (A) 12 %; MCH 32.4 pg (25.0-35.0); MCHC 33.5 g/dL (31.0-37.0); MCV 96.7 fL (80.0-100.0); Mean Platelet Volume 8.9; Monocytes # (A) 0.6 k/uL (0-1.0); Monocytes % (A) 6 %; Neutrophils # (A) 8.6 k/uL (1.3-7.7); Neutrophils % (A) 78 %; Platelet Count 723 k/uL (150-450); RBC 3.42 m/uL (3.80-5.40); RDW 16.9 % (11.5-15.5)
[2022-04-10 09:26] LABS: Albumin 4.7 g/dL (3.5-5.0); Calcium 9.3 mg/dL (8.4-10.2); Total Bilirubin 1.8 mg/dL (0.2-1.3); Total Protein 7.2 g/dL (6.3-8.2)
[2022-04-10 09:33] LABS: INR 0.9 (<1.2); Partial Thromboplastin Time 23.7 sec (22.0-30.0); Prothrombin Time 9.9 sec (9.0-12.0)
[2022-04-10 09:35] LABS: Magnesium 1.9 mg/dL (1.6-2.3); Potassium 4.3 mmol/L (3.5-5.1)
--- NOTE | 2022-04-10 09:38 | XR ---
EXAMINATION TYPE: XR chest 2V DATE OF EXAM: 04/10/2022 COMPARISON: Chest x-ray August 28, 2020 HISTORY: Weakness. TECHNIQUE: Frontal and lateral views of the chest are obtained. FINDINGS: There is no suspicious focal air space opacity, pleural effusion, or pneumothorax seen. Ca rdiomegaly is demonstrated. The osseous structures are demineralized. IMPRESSION: Cardiomegaly without acute pulmonary process.
[2022-04-10 10:58] LABS: Appearance,Urine Clear (Clear); Bilirubin,Urine Negative (Negative); Blood,Urine Negative (Negative); Color,Urine Light Yellow; Glucose,Urine (UA) Negative (Negative); Ketones,Urine Negative (Negative); Leukocyte Esterase,Urine Negative (Negative); Nitrite,Urine Negative (Negative); PH, Urine 7.5 (5.0-8.0); Protein,Urine Negative (Negative); Specific Gravity,Urine 1.008 (1.001-1.035); Urobilinogen,Urine <2.0 mg/dL (<2.0)
[2022-04-10] MEDS: SODIUM CHLORIDE 0.9% 1,000 ML IV ONE ×2 (12:05→22:29)
[2022-04-10] MEDS ORDERED: ACETAMINOPHEN TAB 500 MG TAB PO PRN (18:28)
[2022-04-10] MEDS: ISOSORBIDE MONONITRATE ER 30 MG TAB.ER.24H PO SCH (19:28)
[2022-04-10] MEDS: amLODIPine 5 MG TAB PO SCH (19:28)
[2022-04-10] MEDS: ACYCLOVIR 200 MG CAP PO SCH (21:29)
[2022-04-10] MEDS: ARTIFICIAL TEARS-HYPROMELLOSE DROPS 15 ML BTL BOTH EYES SCH (21:29)
[2022-04-10] MEDS: atenoloL 25 MG TAB PO SCH (21:29)
[2022-04-11] MEDS: amLODIPine 5 MG TAB PO SCH (05:28)
[2022-04-11 06:54] LABS: African American GFR (CKD) 75 (>60 ml/min/1.73 sqM); Anion Gap 5 mmol/L; Blood Urea Nitrogen 19 mg/dL (7-17); Calcium 8.2 mg/dL (8.4-10.2); Carbon Dioxide 24 mmol/L (22-30); Chloride 95 mmol/L (98-107); Glucose 93 mg/dL (74-99); Non-African American GFR(CKD) 65 (>60 ml/min/1.73 sqM); Potassium 4.1 mmol/L (3.5-5.1); Sodium 124 mmol/L (137-145)
[2022-04-11] MEDS ORDERED: hydroCHLOROthiazide 12.5 MG CAP PO SCH (09:00)
[2022-04-11] MEDS: ISOSORBIDE MONONITRATE ER 30 MG TAB.ER.24H PO SCH (09:57)
[2022-04-11] MEDS: CALCIUM CARBONATE 500 MG CHEWABLE PO SCH (09:57)
[2022-04-11] MEDS: CYANOCOBALAMIN 500 MCG TAB PO SCH (09:57)
[2022-04-11] MEDS: CLOPIDOGREL 75 MG TAB PO SCH (09:57)
[2022-04-11] MEDS: ACYCLOVIR 200 MG CAP PO SCH ×2 (09:57→20:28)
[2022-04-11] MEDS: atenoloL 25 MG TAB PO SCH ×2 (09:57→20:28)
[2022-04-11] MEDS: ATORVASTATIN 20 MG TAB PO SCH (09:57)
[2022-04-11] MEDS: ARTIFICIAL TEARS-HYPROMELLOSE DROPS 15 ML BTL BOTH EYES SCH ×2 (09:58→20:28)
--- NOTE | 2022-04-11 10:10 | P.NPCON ---
History of Present Illness - Reason for Consult hyponatremia - History of Present Illness Reason for consultation: Hyponatremia History of present illness: Patient is a 86-year-old female seen in consultation for hyponatremia. Patient's sodium level yesterday morning was 120. This morning it is up to 124. Patient presented to the hospital due to generalized weakness. She denies fever or chills. No vomiting or diarrhea. Oral intake has been fair. Denies excessive fluid intake. She does have history of hypertension and takes hydrochlorothiazide at home. Blood pressures have been on the higher side. Denies chest pain or shortness of breath. Patient states she has history of diabetes but is currently off all medications. She does monitor her blood sugars at home and states are stable. Diuretic was stopped yesterday. She's currently receiving normal saline at 75 mL an hour. GFR is at baseline. Urine osmolality to 25. Vital signs are stable. General: Awake and alert. No acute distress. HEENT: Head exam is unremarkable. LUNGS: Breath sounds decreased. HEART: Rate and Rhythm are regular. ABDOMEN: Soft, no distention. EXTREMITITES: No edema. Past Medical History Past Medical History: Coronary Artery Disease (CAD), Cancer, CVA/TIA, Diabetes Mellitus, Hyperlipidemia, Hypertension, Osteoarthritis (OA), Sleep Apnea/CPAP/BIPAP, Syncope Additional Past Medical History / Comment(s): LEUKEMIA, arterial blockage History of Any Multi-Drug Resistant Organisms: None Reported Past Surgical History: Bowel Resection, Tonsillectomy Additional Past Surgical History / Comment(s): RIGHT OVARY REMOVED, hi cataract surgery, bone marrow biopsy Past Anesthesia/Blood Transfusion Reactions: Motion Sickness Past Psychological History: No Psychological Hx Reported Smoking Status: Never smoker Past Alcohol Use History: None Reported Past Drug Use History: None Reported - Past Family History Father Family Medical History: Cancer, Coronary Artery Disease (CAD) Sister(s) Family Medical History: No Reported History Son(s) Family Medical History: Cancer Additional Family Medical History / Comment(s): larynx cancer Daughter(s) Family Medical History: Cancer Mother Family Medical History: Coronary Artery Disease (CAD) Medications and Allergies Home Medications Medication Instructions Recorded Confirmed Type Isosorbide Mononitrate ER [Imdur] 30 mg PO DAILY 05/18/15 04/10/22 History amLODIPine BESYLATE [Norvasc] 5 mg PO DAILY 05/18/15 04/10/22 History atenoloL [Tenormin] 25 mg PO BID 05/18/15 04/10/22 History Acetaminophen Tab [Tylenol] 1,000 mg PO Q6H PRN 08/28/20 04/10/22 History Atorvastatin [Lipitor] 20 mg PO DAILY 08/28/20 04/10/22 History Calcium Carbonate [Tums Ultra 1,177 mg PO DAILY 08/28/20 04/10/22 History Strength] Clopidogrel [Plavix] 75 mg PO DAILY 08/28/20 04/10/22 History Hydrochlorothiazide 12.5mg Tab 12.5 mg PO DAILY 08/28/20 04/10/22 History Propylene Glycol/Peg 400/Pf 1 drop BOTH EYES BID 08/28/20 04/10/22 History [Systane 0.3-0.4% Eye Drop] Psyllium Husk (with Sugar) 30 gm PO DAILY 08/28/20 04/10/22 History [Metamucil Powder] Acyclovir 400 mg PO BID 04/10/22 04/10/22 History Cyanocobalamin [Vitamin B-12] 500 mcg PO DAILY 04/10/22 04/10/22 History Ruxolitinib Phosphate [Jakafi] 20 mg PO BID 04/10/22 04/10/22 History Allergies Allergy/AdvReac Type Severity Reaction Status Date / Time celecoxib [From Celebrex] Allergy Rash/Hives Verified 04/10/22 09:27 latex Allergy Rash/Hives Verified 04/10/22 09:27 naproxen [From Naprosyn] Allergy Unknown Verified 04/10/22 09:27 piroxicam [From Feldene] Allergy Unknown Verified 04/10/22 09:27 caffeine AdvReac BREAST Verified 04/10/22 09:27 TENDERNESS cortisone AdvReac Nausea & Verified 04/10/22 09:27 Vomiting headache Milk Containing Products AdvReac constipatio Verified 04/10/22 09:27 [Dairy] n Physical Exam Vitals: Vital Signs Temp Pulse Pulse Pulse Resp BP BP 04/11/22 06:07 51 L 150/76 04/11/22 05:36 98 F 52 L 18 174/75 04/10/22 21:27 60 169/80 04/10/22 20:00 98.3 F 51 L 18 152/76 04/10/22 19:25 53 L 155/72 04/10/22 19:17 60 18 04/10/22 12:48 97.9 F 50 L 18 166/79 04/10/22 11:39 49 L 18 161/75 Pulse Ox 04/11/22 06:07 04/11/22 05:36 98 04/10/22 21:27 04/10/22 20:00 94 L 04/10/22 19:25 04/10/22 19:17 04/10/22 12:48 97 04/10/22 11:39 98 Intake and Output 04/10/22 04/11/22 04/11/22 22:59 06:59 14:59 Intake Total 1460 900 358 Balance 1460 900 358 Intake: IV 600 900 Sodium Chloride 0.9% 1, 600 900 000 ml @ 75 mls/hr IV . [id number] Rx#:[id number] Oral 860 358 Other: Voiding Method Toilet # Voids 2 Results - Lab Results Most recent lab results Calcium 8.2 mg/dL (8.4-10.2) L 04/11/22 05:53 Magnesium 2.0 mg/dL (1.6-2.3) 04/11/22 05:53 04/10/22 08:55 04/11/22 05:53 Assessment and Plan Plan: Assessment: 1. Hyponatremia. Euvolemic. Etiology is thiazide diuretic and poor solute intake. Urine osmolality 225. TSH normal. Urine sodium pending. 2. Benign hypertension. 3. Bradycardia. She is on atenolol. 4. Hx of ?leukemia - follows with oncology outpatient. Plan: Hep-Lock IV fluids. Discontinue thiazide diuretic and avoid in the future. 1200 mL fluid restriction. Increase dose of amlodipine to 10 mg daily. Repeat labs in the morning. Consider cardiology evaluation for bradycardia and holding atenolol for now. Defer to primary team. Thank you for the consultation. I will continue to follow this patient with you during her hospital stay.
--- NOTE | 2022-04-11 18:12 | HP ---
HISTORY AND PHYSICAL This is an 86-year-old white female who came in with symptomatic hyponatremia of 120. I took her off HydroDIURIL on admission as possibly a cause. She denies any vomiting, chills, nausea. She denies excessive fluid intake. Denies chest pain, shortness of breath. Urine osmolality is 25. She is on normal saline 75/hour. Vital signs are stable. Afebrile. Psych fair mood and affect. Neurologic alert and oriented x3. Cardiovascular S1-S2. Hematology negative Homans. Vascular normal dorsalis pedis, posterior tibial and radial pulse. Neurologic: Cranial nerves intact. PAST MEDICAL HISTORY: Coronary artery disease, diabetes mellitus, dyslipidemia, hypertension, osteoarthritis, sleep apnea. PAST SURGICAL HISTORY: Bowel resection, tonsillectomy. FAMILY HISTORY: Reviewed. HOME MEDICINES: Reviewed. ALLERGIES: Reviewed. PHYSICAL EXAMINATION: Vital signs: Temperature 98, pulse 50s to 60s, respiratory rate 16 to 18, blood pressure 150s to 160s over 70s. Cardiovascular S1-S2. Lungs with transmitted upper airway sounds. Neurologic: Cranial nerves are intact. Psych fair mood and affect. Labs reviewed. Sodium 120, potassium 4.1. Hemoglobin is 11.1, white count ASSESSMENT: 1. Hyponatremia. Rule out SIADH. Rehydrate. I suspect she has got dehydration. 2. Bradycardia. 3. Hypertension. 4. History of leukemia. Continue current treatments. Replace electrolytes. Get nephrology consult. CONCHA / MEGHA: [id number] /
[2022-04-12] MEDS: ISOSORBIDE MONONITRATE ER 30 MG TAB.ER.24H PO SCH (08:04)
[2022-04-12] MEDS: ACYCLOVIR 200 MG CAP PO SCH (08:04)
[2022-04-12] MEDS: atenoloL 25 MG TAB PO SCH (08:06)
[2022-04-12] MEDS: ARTIFICIAL TEARS-HYPROMELLOSE DROPS 15 ML BTL BOTH EYES SCH (08:06)
[2022-04-12] MEDS: ATORVASTATIN 20 MG TAB PO SCH (08:06)
[2022-04-12] MEDS: CYANOCOBALAMIN 500 MCG TAB PO SCH (08:06)
[2022-04-12] MEDS: CALCIUM CARBONATE 500 MG CHEWABLE PO SCH (08:06)
[2022-04-12] MEDS: CLOPIDOGREL 75 MG TAB PO SCH (08:06)
[2022-04-12] MEDS ORDERED: amLODIPine 10 MG TAB PO SCH (09:00)
--- NOTE | 2022-04-12 10:03 | P.CRDCN ---
History of Present Illness History of present illness: HISTORY OF PRESENTING ILLNESS This is a pleasant 86-year-old female past medical history significant for coronary artery disease with known 100% stenosis proximal RCA, Hypertension, Type 2 Diabetes, Dyslipidemia, peripheral vascular disease, former smoker, carotid artery disease. She follows with Dr. Mendez. We have been asked to see in consultation for bradycardia. Patient presents to the emergency department with complaints of generalized weakness and dizziness. She denies any chest p ain, shortness of breath, syncope or near syncope. She denies any loss of consciousness. She denies any nausea or vomiting. She is feeling better today, denies any further dizziness. She was found to be hyponatremic with sodium of 120. Patient with document heart rates in the 50s-90s, not on telemetry to review. Has been receiving atenolol 25mg BID inpatient since admission. Her Sodium improved yesterday to 124. Repeat Labs pending DIAGNOSTICS EKG reveals Sinus bradycardia HR 51, early repolarization in anterior leads, LVH. Prior EKG in the office similar findings and with HR 53. Telemetry tracings indicate not on telemetry to review. Chest xray Cardiomegaly Laboratory reviewed from yesterday sodium 124, potassium 4.1, BUN 19, serum creatinine 0.8 Echo 09/2020 revealed a normal ejection fraction, moderate tricuspid regurgitation, mild to moderate tricuspid regurgitation. Cardiac catheterization 10/2010 revealed 100% proximal RCA stenosis Current home cardiac medications include atenolol 25 mg twice a day, amlodipine 5 mg daily, Imdur 30 mg daily, atorvastatin 20 mg daily, Plavix 75 mg daily, hydrochlorothiazide 12.5 mg daily REVIEW OF SYSTEMS At the time of my exam: CONSTITUTIONAL: Denies fever or chills. CARDIOVASCULAR: Denies chest pain, shortness of breath, orthopnea, PND or palpitations. RESPIRATORY: Denies cough. GASTROINTESTINAL: Denies abdominal pain, diarrhea, constipation, nausea or vomiting. MUSCULOSKELETAL: Denies myalgias. NEUROLOGIC: Denies numbness, tingling, headacbe or weakness. ENDOCRINE: Denies fatigue, weight change, polydipsia or polyurina. GENITOURINARY: Denies burning, hematuria or urgency with micturation. HEMATOLOGIC: +history of anemia PHYSICAL EXAMINATION Blood pressure 164/64, heart rate 61, afebrile, saturations 97% on room air CONSTITUTIONAL: No apparent distress. HEENT: Head is normocephalic. Pupils are equal, round. Sclerae anicteric. Mucous membranes of the mouth are moist. No JVD. No carotid bruit. CHEST EXAMINATION: Lungs are clear to auscultation. No chest wall tenderness is noted on palpation or with deep breathing. HEART EXAMINATION: Regular rate and rhythm. S1, S2 heard. Systolic murmur at apex. No gallops or rub. ABDOMEN: Soft, nontender. Positive bowel sounds. EXTREMITIES: 2+ peripheral pulses, no lower extremity edema and no calf tenderness. NEUROLOGIC EXAMINATION: Patient is awake, alert and oriented x3. ASSESSMENT Sinus bradycardia, symptomatic with dizziness Hyponatremia Generalized weakness Coronary artery disease with known 100% stenosis proximal RCA Hypertension Type 2 Diabetes Dyslipidemia Peripheral vascular disease Former tobacco use Carotid artery disease PLAN Recommend decreasing atenolol 12.5mg BID Amlodipine increased to 10mg daily for elevated blood pressure Hydrochlorothiazide discontinued No further changes from a cardiology perspective. Follow up outpatient with Dr. Mendez Nurse practitioner note has been reviewed by physician. Signing provider agrees with the documented findings, assessment, and plan of care. Past Medical History Past Medical History: Coronary Artery Disease (CAD), Cancer, CVA/TIA, Diabetes Mellitus, Hyperlipidemia, Hypertension, Osteoarthritis (OA), Sleep Apnea/CPAP/BIPAP, Syncope Additional Past Medical History / Comment(s): LEUKEMIA, arterial blockage History of Any Multi-Drug Resistant Organisms: None Reported Past Surgical History: Bowel Resection, Tonsillectomy Additional Past Surgical History / Comment(s): RIGHT OVARY REMOVED, hi cataract surgery, bone marrow biopsy Past Anesthesia/Blood Transfusion Reactions: Motion Sickness Past Psychological History: No Psychological Hx Reported Smoking Status: Never smoker Past Alcohol Use History: None Reported Past Drug Use History: None Reported - Past Family History Father Family Medical History: Cancer, Coronary Artery Disease (CAD) Sister(s) Family Medical History: No Reported History Son(s) Family Medical History: Cancer Additional Family Medical History / Comment(s): larynx cancer Daughter(s) Family Medical History: Cancer Mother Family Medical History: Coronary Artery Disease (CAD) Medications and Allergies Home Medications Medication Instructions Recorded Confirmed Type Isosorbide Mononitrate ER [Imdur] 30 mg PO DAILY 05/18/15 04/10/22 History amLODIPine BESYLATE [Norvasc] 5 mg PO DAILY 05/18/15 04/10/22 History atenoloL [Tenormin] 25 mg PO BID 05/18/15 04/10/22 History Acetaminophen Tab [Tylenol] 1,000 mg PO Q6H PRN 08/28/20 04/10/22 History Atorvastatin [Lipitor] 20 mg PO DAILY 08/28/20 04/10/22 History Calcium Carbonate [Tums Ultra 1,177 mg PO DAILY 08/28/20 04/10/22 History Strength] Clopidogrel [Plavix] 75 mg PO DAILY 08/28/20 04/10/22 History Hydrochlorothiazide 12.5mg Tab 12.5 mg PO DAILY 08/28/20 04/10/22 History Propylene Glycol/Peg 400/Pf 1 drop BOTH EYES BID 08/28/20 04/10/22 History [Systane 0.3-0.4% Eye Drop] Psyllium Husk (with Sugar) 30 gm PO DAILY 08/28/20 04/10/22 History [Metamucil Powder] Acyclovir 400 mg PO BID 04/10/22 04/10/22 History Cyanocobalamin [Vitamin B-12] 500 mcg PO DAILY 04/10/22 04/10/22 History Ruxolitinib Phosphate [Jakafi] 20 mg PO BID 04/10/22 04/10/22 History Allergies Allergy/AdvReac Type Severity Reaction Status Date / Time celecoxib [From Celebrex] Allergy Rash/Hives Verified 04/10/22 09:27 latex Allergy Rash/Hives Verified 04/10/22 09:27 naproxen [From Naprosyn] Allergy Unknown Verified 04/10/22 09:27 piroxicam [From Feldene] Allergy Unknown Verified 04/10/22 09:27 caffeine AdvReac BREAST Verified 04/10/22 09:27 TENDERNESS cortisone AdvReac Nausea & Verified 04/10/22 09:27 Vomiting headache Milk Containing Products AdvReac constipatio Verified 04/10/22 09:27 [Dairy] n Physical Exam Vitals: Vital Signs Temp Pulse Resp BP Pulse Ox 04/12/22 04:31 97.5 F L 61 17 164/64 97 04/11/22 20:25 95 135/66 04/11/22 20:02 98.4 F 55 L 16 153/85 95 04/11/22 19:43 95 16 05/24/22 11:33 97.1 F L 52 L 18 144/70 91 L Intake and Output 04/11/22 04/12/22 04/12/22 22:59 06:59 14:59 Intake Total 540 Balance 540 Intake: Oral 540 Other: Voiding Method Toilet # Voids 1 4 Results 04/10/22 08:55 04/11/22 05:53 Current Medications Generic Name Dose Route Start Last Admin Trade Name Liangq PRN Reason Stop Dose Admin Acetaminophen 1,000 mg 04/10/22 18:28 Acetaminophen Tab 500 Mg Tab PO Q6H PRN Mild Pain Acyclovir 400 mg 04/10/22 21:00 04/11/22 20:28 Acyclovir 200 Mg Cap PO 400 mg BID [facility] Administration Amlodipine Besylate 10 mg 04/12/22 09:00 Amlodipine 10 Mg Tab PO DAILY KAYLENE Artificial Tears 1 drops 04/10/22 21:00 04/11/22 20:28 Artificial Tears-Hypromellose Drops 15 Ml Btl BOTH EYES 1 drops BID KAYLENE Administration Atenolol 25 mg 04/10/22 21:00 04/11/22 20:28 Atenolol 25 Mg Tab PO 25 mg BID KAYLENE Administration Atorvastatin Calcium 20 mg 04/11/22 09:00 04/11/22 09:57 Atorvastatin 20 Mg Tab PO 20 mg DAILY KAYLENE Administration Calcium Carbonate/Glycine 1,000 mg 04/11/22 09:00 04/11/22 09:57 Calcium Carbonate 500 Mg Chewable PO 1,000 mg DAILY KAYLENE Administration Clopidogrel Bisulfate 75 mg 04/11/22 09:00 04/11/22 09:57 Clopidogrel 75 Mg Tab PO 75 mg DAILY KAYLENE Administration Cyanocobalamin 500 mcg 04/11/22 09:00 04/11/22 09:57 Cyanocobalamin 500 Mcg Tab PO 500 mcg DAILY KAYLENE Administration Isosorbide Mononitrate 30 mg 04/10/22 18:30 04/11/22 09:57 Isosorbide Mononitrate Er 30 Mg Tab.Er.24h PO 30 mg DAILY KAYLENE Administration Intake and Output 04/11/22 04/12/22 04/12/22 22:59 06:59 14:59 Intake Total 540 Balance 540 Intake: Oral 540 Other: Voiding Method Toilet # Voids 1 4 04/10/22 08:55 04/11/22 05:53
[2022-04-12 11:11] LABS: African American GFR (CKD) 68.1 (60.0-200.0); Albumin 4.7 g/dL (3.8-4.9); Albumin/Globulin Ratio 2.14 (1.60-3.17); Anion Gap 9.9 mmol/L (10.00-18.00); BUN/Creat Ratio 15.78 Ratio (12.00-20.00); Blood Urea Nitrogen 14.2 mg/dL (9.0-27.0); Calcium 9.5 mg/dL (8.7-10.3); Carbon Dioxide 25.1 mmol/L (20.0-27.5); Globulin 2.2 g/dL (1.6-3.3); Magnesium 2.3 mg/dL (1.5-2.4); Non-African American GFR(CKD) 58.7 (60.0-200.0); Potassium 4.5 mmol/L (3.5-5.5); Total Bilirubin 0.8 mg/dL (0.30-1.20); Total Protein 6.9 g/dL (6.2-8.2)
[2022-04-12] MEDS ORDERED: DEXTROSE 5% IN WATER 1,000 ML IV ONE (11:17)
--- NOTE | 2022-04-12 11:17 | P.PN ---
Subjective Patient is seen in follow-up for hyponatremia. Sodium level 135 today. Patient is not on any IV fluids. Oral intake is fair. No vomiting or diarrhea. Vital signs are stable. General: Awake and alert. No acute distress. HEENT: Head exam is unremarkable. LUNGS: Breath sounds decreased. HEART: Rate and Rhythm are regular. ABDOMEN: Soft, no distention. EXTREMITITES: No edema. Objective - Vital Signs Vital signs: Vital Signs Temp 97.5 F L 04/12/22 04:31 Pulse 61 04/12/22 04:31 Resp 17 04/12/22 04:31 BP 164/64 04/12/22 04:31 Pulse Ox 97 04/12/22 04:31 FiO2 Intake & Output 04/11/22 04/12/22 04/12/22 18:59 06:59 18:59 Intake Total 898 Balance 898 Intake: Oral 898 Other: Voiding Method Toilet # Voids 1 4 - Labs CBC & Chem 7: 04/10/22 08:55 04/12/22 07:10 Labs: Abnormal Lab Results - Last 24 Hours (Table) 04/11/22 04/12/22 Range/Units 05:16 07:10 Anion Gap 9.90 L (10.00-18.00) mmol/L Est GFR (CKD-EPI)NonAf 58.7 L (60.0-200.0) Glucose 112 H (70-110) mg/dL Ur Random Sodium <20 L (40-220) mmol/L Assessment and Plan Plan: Assessment: 1. Hyponatremia. Euvolemic. Improved. Etiology is thiazide diuretic and poor solute intake. Urine osmolality 225. TSH normal. Urine sodium less than 20. 2. Benign hypertension. 3. Bradycardia. She is on atenolol, dose decreased. Better. Seen by cardiology. 4. Hx of ?leukemia - follows with oncology outpatient. Plan: Remains off IV fluids. Discontinued thiazide diuretic and avoid in the future. 1200 mL fluid restriction. Encouraged oral intake. Follow-up echocardiogram. Repeat labs in the morning. D5W at 75 mL an hour for 3 hours and repeat sodium level.
[2022-04-12 13:14] LABS: HGB 10.8 g/dL (12.0-15.0); MCHC 31.8 g/dL (32.0-37.0); MCV 100.6 fL (80.0-97.0); Mean Platelet Volume 11.1 fL (9.5-12.2); Platelet Count 669 X 10*3/uL (140-440); RBC 3.38 X 10*6/uL (4.10-5.20); RDW 17.4 % (11.5-14.5); WBC 14.18 X 10*3/uL (4.50-10.00)
[2022-04-12 13:38] LABS: Acanthocytes 2+; Basophils # (M) 0 X 10*3/uL (0.00-0.10); Elliptocytes 2+; Eosinophils # (M) 0 X 10*3/uL (0.04-0.35); Lymphocytes # (M) 0.99 X 10*3/uL (0.90-5.00); Monocytes # (M) 0.57 X 10*3/uL (0.20-1.00); Myelocytes % 1 % (0-0); Neutrophils # (M) 12.48 X 10*3/uL (2.00-8.90); Neutrophils % (M) 88 %
--- NOTE | 2022-04-12 14:15 | CA ---
Transthoracic Echo Report Name: Karin Martinez Age: 86 Gender: F : 1935 Exam Date: 04/12/2022 08:39 Exam Location: [facility] Ht (in): 66 Wt (lb): 160 Ordering Physician: Juan Villalta MD Attending/Referring Phys: Rotary Shear Operator Dominga Forrester RDCS Procedure CPT: Indications: chf Cardiac Hx: Technical Quality: Fair Contrast 1: Total Dose (mL): Contrast 2: Total Dose (mL): MEASUREMENTS (Male / Female) Normal Values 2D ECHO LV Diastolic Diameter PLAX 3.7 cm 4.2 - 5.9 / 3.9 - 5.3 cm LV Systolic Diameter PLAX 2.2 cm IVS Diastolic Thickness 1.7 cm 0.6 - 1.0 / 0.6 - 0.9 cm LVPW Diastolic Thickness 1.6 cm 0.6 - 1.0 / 0.6 - 0.9 cm LV Relative Wall Thickness 0.9 RV Internal Dim ED PLAX 3.3 cm LA Volume 77.4 cm??? 18 - 58 / 22 - 52 cm??? M-MODE Aortic Root Diameter MM 3.2 cm LA Systolic Diameter MM 3.7 cm LA Ao Ratio MM 1.2 AV Cusp Separation MM 2.0 cm DOPPLER AV Peak Velocity 194.6 cm/s AV Peak Gradient 15.2 mmHg LVOT Peak Velocity 168.5 cm/s LVOT Peak Gradient 11.4 mmHg MV Area PHT 3.2 cm??? Mitral E Point Velocity 72.6 cm/s Mitral A Point Velocity 79.8 cm/s Mitral E to A Ratio 0.9 MV Deceleration Time 240.1 ms TR Peak Velocity 271.4 cm/s TR Peak Gradient 29.5 mmHg Right Ventricular Systolic Press 32.7 mmHg FINDINGS Left Ventricle Severely increased left ventricular wall thickness. Normal left ventricular systolic function with no obvious regional wall motion abnormalities. Left ventricular ejection fraction is estimated at 55-60 %. Abnormal left ventricular diastolic filling pattern. Right Ventricle Normal right ventricular size and function. Mild pulmonary hypertension. Right Atrium Normal right atrial size. Left Atrium Severely increased left atrial volume. No evidence for an atrial septal defect. Mitral Valve Mitral annular calcification. Moderate mitral regurgitation. Aortic Valve Trileaflet aortic valve. No aortic stenosis. No aortic regurgitation. Aortic valve sclerosis. Tricuspid Valve Structurally normal tricuspid valve. [id number] tricuspid regurgitation. Pulmonic Valve Trace pulmonic regurgitation. Pericardium No pericardial effusion. Aorta Normal size aortic root and proximal ascending aorta. CONCLUSIONS Normal left ventricular dimension and systolic function Elevated left ventricular filling pressure Previewed by: Dr. Cade Noguera MD (Electronically Signed) Final Date: 12 Apr 2022 14:14
[2022-04-12 16:12] VITALS: BP 175/78; PULSE 64; RESP 16; TEMP 97.7
--- NOTE | 2022-04-12 19:36 | DS ---
DISCHARGE SUMMARY This 86-year-old white female was admitted with significant hyponatremia attributed to HydroDIURIL, which was discontinued. Improved with fluid restriction. Hypertension medicines were adjusted due to bradycardia. Beta josiane dose was lowered. Amlodipine dose was increased. She has chronic leukemia. Her white count was a little bit elevated, but her strength greatly improved with her low sodium improved. Her generalized weakness, hyponatremia and vertigo improved. She has a prior CVA and prior leukemia. She will be stable for discharge to follow up as an outpatient. PROGNOSIS: Guarded. See medication list, which includes Norvasc 10 mg daily, atenolol 12.5 b.i.d., Imdur 30 mg daily, Plavix 75 mg daily, Lipitor 20 daily, acyclovir 400 b.i.d., 20 mg b.i.d. Follow up as an outpatient. MMIRMAL / ASTRIDN: [id number] /
== END 2022-04-12 18:55 | disposition home or self-care (01) | DRG 641 ==
LOC: EC 08:24 → 5NMEDONC 11:15
PROVIDERS: ADMIT Family Medicine; ATTEND Family Medicine
DX: E87.1 Hypo-osmolality and hyponatremia (principal); E11.9 Type 2 diabetes mellitus without complications; I25.10 Atherosclerotic heart disease of native coronary artery without angina pectoris; I10 Essential (primary) hypertension; T50.1X5A Adverse effect of loop [high-ceiling] diuretics, initial encounter; E78.5 Hyperlipidemia, unspecified; E11.51 Type 2 diabetes mellitus with diabetic peripheral angiopathy without gangrene; R00.1 Bradycardia, unspecified; I08.1 Rheumatic disorders of both mitral and tricuspid valves; M19.90 Unspecified osteoarthritis, unspecified site; Z79.02 Long term (current) use of antithrombotics/antiplatelets; Z79.899 Other long term (current) drug therapy; I37.1 Nonrheumatic pulmonary valve insufficiency; Z80.2 Family history of malignant neoplasm of other respiratory and intrathoracic organs; Z82.49 Family history of ischemic heart disease and other diseases of the circulatory system; Z85.6 Personal history of leukemia; Z86.73 Personal history of transient ischemic attack (TIA), and cerebral infarction without residual deficits; Z90.721 Acquired absence of ovaries, unilateral; Z87.891 Personal history of nicotine dependence; Z88.8 Allergy status to other drugs, medicaments and biological substances; Z91.040 Latex allergy status; X58.XXXA Exposure to other specified factors, initial encounter; Z87.19 Personal history of other diseases of the digestive system; Z88.6 Allergy status to analgesic agent; Z91.011 Allergy to milk products
CPT/HCPCS: 36415; 71046; 80048; 80053; 81003; 83605; 83735; 83880; 83930; 83935; 84295; 84300; 84443; 84484; 85025; 85610; 85730; 93005; 93306; 99285

== ENCOUNTER 2022-06-29 12:30 | Inpatient (IN) | payer MEDICARE ==
[2022-06-29] MEDS ORDERED: SODIUM CHLORIDE 0.9% 500 ML 500 ML IV STA ×2 (12:47→14:20)
[2022-06-29] MEDS ORDERED: MECLIZINE 25 MG TAB PO STA (12:47)
--- NOTE | 2022-06-29 12:50 | ED ---
General Adult HPI - General Chief complaint: Nausea/Vomiting/Diarrhea Stated complaint: Dizziness Time Seen by Provider: 06/29/22 12:35 Source: patient, EMS, RN notes reviewed, old records reviewed Mode of arrival: EMS Limitations: no limitations - History of Present Illness Initial comments: This is an 86-year-old female presents emergency room complaining of 3 day history of dizziness and dry heaves. Patient states when she stands up she feels a chest cold onto something initial fall over. Patient denies any headache. Patient denies numbness or focal weakness. Patient does complain of generalized overall weakness Patient denies any chest pain palpitations difficulty breathing or shortness of breath. Patient denies any abdominal pain patient denies any actual vomiting or diarrhea. Patient denies any slurred speech. Patient denies any recent fevers chills or cough. Patient denies any injury or trauma. Patient denies any history of similar. Patient states he sits in bed and remains still she feels much better.patient is a diabetic who has hypertension. Patient states her sugars have been good recently. - Related Data Home Medications Medication Instructions Recorded Confirmed Isosorbide Mononitrate ER [Imdur] 30 mg PO DAILY 05/18/15 04/10/22 Acetaminophen Tab [Tylenol] 1,000 mg PO Q6H PRN 08/28/20 04/10/22 Atorvastatin [Lipitor] 20 mg PO DAILY 08/28/20 04/10/22 Calcium Carbonate [Tums Ultra 1,177 mg PO DAILY 08/28/20 04/10/22 Strength] Clopidogrel [Plavix] 75 mg PO DAILY 08/28/20 04/10/22 Propylene Glycol/Peg 400/Pf 1 drop BOTH EYES BID 08/28/20 04/10/22 [Systane 0.3-0.4% Eye Drop] Acyclovir [Zovirax] 400 mg PO BID 04/10/22 04/10/22 Cyanocobalamin [Vitamin B-12] 500 mcg PO DAILY 04/10/22 04/10/22 Ruxolitinib Phosphate [Jakafi] 20 mg PO BID 04/10/22 04/10/22 Previous Rx's Medication Instructions Recorded amLODIPine [Norvasc] 10 mg PO DAILY 90 Days #90 tab 04/12/22 atenoloL [Tenormin] 12.5 mg PO BID 30 Days #60 tab 04/12/22 Allergies Allergy/AdvReac Type Severity Reaction Status Date / Time celecoxib [From Celebrex] Allergy Rash/Hives Verified 06/29/22 12:39 latex Allergy Rash/Hives Verified 06/29/22 12:39 naproxen [From Naprosyn] Allergy Unknown Verified 06/29/22 12:39 piroxicam [From Feldene] Allergy Unknown Verified 06/29/22 12:39 caffeine AdvReac BREAST Verified 06/29/22 12:39 TENDERNESS cortisone AdvReac Nausea & Verified 06/29/22 12:39 Vomiting headache Milk Containing Products AdvReac constipatio Verified 06/29/22 12:39 [Dairy] n Review of Systems ROS Statement: Those systems with pertinent positive or pertinent negative responses have been documented in the HPI. ROS Other: All systems not noted in ROS Statement are negative. Past Medical History Past Medical History: Coronary Artery Disease (CAD), Cancer, CVA/TIA, Diabetes Mellitus, Hyperlipidemia, Hypertension, Osteoarthritis (OA), Sleep Apnea/CPAP/BIPAP, Syncope Additional Past Medical History / Comment(s): LEUKEMIA, arterial blockage History of Any Multi-Drug Resistant Organisms: None Reported Past Surgical History: Bowel Resection, Tonsillectomy Additional Past Surgical History / Comment(s): RIGHT OVARY REMOVED, hi cataract surgery, bone marrow biopsy Past Anesthesia/Blood Transfusion Reactions: Motion Sickness Past Psychological History: No Psychological Hx Reported Smoking Status: Never smoker Past Alcohol Use History: None Reported Past Drug Use History: None Reported - Past Family History Father Family Medical History: Cancer, Coronary Artery Disease (CAD) Sister(s) Family Medical History: No Reported History Son(s) Family Medical History: Cancer Additional Family Medical History / Comment(s): larynx cancer Daughter(s) Family Medical History: Cancer Mother Family Medical History: Coronary Artery Disease (CAD) General Exam - General Exam Comments Initial Comments: GENERAL: Patient is well-developed and well-nourished. Patient is nontoxic and well- hydrated and is in mild distress. ENT: Neck is soft and supple. No significant lymphadenopathy is noted. Oropharynx is clear. Moist mucous membranes. Neck has full range of motion without eliciting any pain. EYES: The sclera were anicteric and conjunctiva were pink and moist. Extraocular movements were intact and pupils were equal round and reactive to light. Eyelids were unremarkable. PULMONARY: Unlabored respirations. Good breath sounds bilaterally. No audible rales rhonchi or wheezing was noted. CARDIOVASCULAR: There is a regular rate and rhythm without any murmurs gallops or rubs. ABDOMEN: Soft and nontender with normal bowel sounds. SKIN: Skin is clear with no lesions or rashes and otherwise unremarkable. NEUROLOGIC: Patient is alert and oriented x3. Cranial nerves II through XII are grossly intact. Motor and sensory are also intact. Normal speech, volume and content. Symmetrical smile. Finger nose testing was normal bilaterally MUSCULOSKELETAL: Normal extremities with adequate strength and full range of motion. No lower extremity swelling or edema. No calf tenderness. LYMPHATICS: No significant lymphadenopathy is noted PSYCHIATRIC: Normal psychiatric evaluation. Limitations: no limitations Course Vital Signs 06/29/22 06/29/22 12:31 14:00 Temperature 97.9 F Pulse Rate 62 60 Respiratory 18 16 Rate Blood Pressure 176/97 110/68 O2 Sat by Pulse 99 99 Oximetry Medical Decision Making - Medical Decision Making EKG shows sinus bradycardia 59 bpm PA interval is on an 86 QRS is 91 Q-T intervals 4:30 QTC is 431 per patient's EKG shows no ST segment elevation or depression. Chest x-ray shows no acute abnormality. I will back and reevaluated the patient after she got some fluid she was feeling a little bit better. I spoke with Dr. Villalta he agreed to admit the patient admitted the patient wrote admitting orders. - Lab Data Result diagrams: 06/29/22 12:45 06/29/22 12:45 Lab Results 06/29/22 06/29/22 06/29/22 Range/Units 12:45 12:45 12:45 WBC 12.2 H (3.8-10.6) k/uL RBC 3.43 L (3.80-5.40) m/uL Hgb 11.3 L (11.4-16.0) gm/dL Hct 33.7 L (34.0-46.0) % MCV 98.1 (80.0-100.0) fL MCH 33.0 (25.0-35.0) pg MCHC 33.7 (31.0-37.0) g/dL RDW 16.6 H (11.5-15.5) % Plt Count 869 H (150-450) k/uL MPV 8.8 Neutrophils % 72 % Lymphocytes % 18 % Monocytes % 5 % Eosinophils % 1 % Basophils % 1 % Neutrophils # 8.7 H (1.3-7.7) k/uL Lymphocytes # 2.1 (1.0-4.8) k/uL Monocytes # 0.6 (0-1.0) k/uL Eosinophils # 0.2 (0-0.7) k/uL Basophils # 0.1 (0-0.2) k/uL Anisocytosis Slight Macrocytosis Slight Sodium 123 L (137-145) mmol/L Potassium 4.9 (3.5-5.1) mmol/L Chloride 88 L (98-107) mmol/L Carbon Dioxide 24 (22-30) mmol/L Anion Gap 11 mmol/L BUN 15 (7-17) mg/dL Creatinine 0.72 (0.52-1.04) mg/dL Est GFR (CKD-EPI)AfAm 90 (>60 ml/min/1.73 sqM) Est GFR (CKD-EPI)NonAf 78 (>60 ml/min/1.73 sqM) Glucose 122 H (74-99) mg/dL Plasma Lactic Acid Terrell (0.7-2.0) mmol/L Calcium 9.4 (8.4-10.2) mg/dL Magnesium 1.9 (1.6-2.3) mg/dL Total Bilirubin 1.4 H (0.2-1.3) mg/dL AST 32 (14-36) U/L ALT 21 (4-34) U/L Alkaline Phosphatase 61 (38-126) U/L Troponin I <0.012 (0.000-0.034) ng/mL Total Protein 6.9 (6.3-8.2) g/dL Albumin 4.7 (3.5-5.0) g/dL Urine Color Urine Appearance (Clear) Urine pH (5.0-8.0) Ur Specific Beaumont (1.001-1.035) Urine Protein (Negative) Urine Glucose (UA) (Negative) Urine Ketones (Negative) Urine Blood (Negative) Urine Nitrite (Negative) Urine Bilirubin (Negative) Urine Urobilinogen (<2.0) mg/dL Ur Leukocyte Esterase (Negative) 06/29/22 06/29/22 Range/Units 13:03 13:17 WBC (3.8-10.6) k/uL RBC (3.80-5.40) m/uL Hgb (11.4-16.0) gm/dL Hct (34.0-46.0) % MCV (80.0-100.0) fL MCH (25.0-35.0) pg MCHC (31.0-37.0) g/dL RDW (11.5-15.5) % Plt Count (150-450) k/uL MPV Neutrophils % % Lymphocytes % % Monocytes % % Eosinophils % % Basophils % % Neutrophils # (1.3-7.7) k/uL Lymphocytes # (1.0-4.8) k/uL Monocytes # (0-1.0) k/uL Eosinophils # (0-0.7) k/uL Basophils # (0-0.2) k/uL Anisocytosis Macrocytosis Sodium (137-145) mmol/L Potassium (3.5-5.1) mmol/L Chloride (98-107) mmol/L Carbon Dioxide (22-30) mmol/L Anion Gap mmol/L BUN (7-17) mg/dL Creatinine (0.52-1.04) mg/dL Est GFR (CKD-EPI)AfAm (>60 ml/min/1.73 sqM) Est GFR (CKD-EPI)NonAf (>60 ml/min/1.73 sqM) Glucose (74-99) mg/dL Plasma Lactic Acid Terrell 2.1 H* (0.7-2.0) mmol/L Calcium (8.4-10.2) mg/dL Magnesium (1.6-2.3) mg/dL Total Bilirubin (0.2-1.3) mg/dL AST (14-36) U/L ALT (4-34) U/L Alkaline Phosphatase (38-126) U/L Troponin I (0.000-0.034) ng/mL Total Protein (6.3-8.2) g/dL Albumin (3.5-5.0) g/dL Urine Color Light Yellow Urine Appearance Clear (Clear) Urine pH 7.5 (5.0-8.0) Ur Specific [place] 1.010 (1.001-1.035) Urine Protein Trace H (Negative) Urine Glucose (UA) Negative (Negative) Urine Ketones Negative (Negative) Urine Blood Negative (Negative) Urine Nitrite Negative (Negative) Urine Bilirubin Negative (Negative) Urine Urobilinogen <2.0 (<2.0) mg/dL Ur Leukocyte Esterase Negative (Negative) Disposition Clinical Impression: Generalized weakness, Hyponatremia, Dizziness, Dry heaves Disposition: ADMITTED IP TO THIS HOSP Referrals: Juan Villalta MD [Primary Care Provider] - 1-2 days Time of Disposition: 15:01
[2022-06-29 13:06] LABS: Anisocytosis Slight; Basophils # (A) 0.1 k/uL (0-0.2); Basophils % (A) 1 %; Eosinophils # (A) 0.2 k/uL (0-0.7); Eosinophils % (A) 1 %; HCT 33.7 % (34.0-46.0); HGB 11.3 gm/dL (11.4-16.0); Lymphocytes # (A) 2.1 k/uL (1.0-4.8); Lymphocytes % (A) 18 %; MCHC 33.7 g/dL (31.0-37.0); MCV 98.1 fL (80.0-100.0); Macrocytosis Slight; Mean Platelet Volume 8.8; Monocytes # (A) 0.6 k/uL (0-1.0); Monocytes % (A) 5 %; Neutrophils # (A) 8.7 k/uL (1.3-7.7); Neutrophils % (A) 72 %; Platelet Count 869 k/uL (150-450); RBC 3.43 m/uL (3.80-5.40); RDW 16.6 % (11.5-15.5); WBC 12.2 k/uL (3.8-10.6)
[2022-06-29 13:12] LABS: Appearance,Urine Clear (Clear); Bilirubin,Urine Negative (Negative); Blood,Urine Negative (Negative); Color,Urine Light Yellow; Glucose,Urine (UA) Negative (Negative); Ketones,Urine Negative (Negative); Leukocyte Esterase,Urine Negative (Negative); Nitrite,Urine Negative (Negative); PH, Urine 7.5 (5.0-8.0); Protein,Urine Trace (Negative); Urobilinogen,Urine <2.0 mg/dL (<2.0)
[2022-06-29 13:16] LABS: Albumin 4.7 g/dL (3.5-5.0); Calcium 9.4 mg/dL (8.4-10.2); Total Bilirubin 1.4 mg/dL (0.2-1.3); Total Protein 6.9 g/dL (6.3-8.2)
[2022-06-29 13:18] LABS: Magnesium 1.9 mg/dL (1.6-2.3); Potassium 4.9 mmol/L (3.5-5.1)
--- NOTE | 2022-06-29 13:43 | XR ---
EXAMINATION TYPE: XR chest 2V DATE OF EXAM: 06/29/2022 1:34 PM COMPARISON: Chest radiographs from 04/10/2022 TECHNIQUE: XR chest 2V Frontal and lateral views of the chest. CLINICAL INDICATION:Female, 86 years old with history of Weakness; FINDINGS: Lungs/Pleura: There is flattening of the diaphragm with increased lucency of the lungs. No evidence o f pneumothorax, pleural effusion or focal consolidation. Pulmonary vascularity: Unremarkable. Heart/mediastinum: Cardiomediastinal silhouette is enlarged and stable. Musculoskeletal: No acute osseous pathology. IMPRESSION: 1. No acute cardiopulmonary disease process. 2. COPD changes.
[2022-06-29] MEDS ORDERED: SODIUM CHLORIDE 0.9% 1,000 ML IV ONE (15:44)
[2022-06-29] MEDS: RUXOLITINIB PHOSPHATE 10 MG PO SCH (20:02)
[2022-06-29] MEDS: atenoloL 25 MG TAB PO SCH (20:03)
[2022-06-29 20:47] LABS: Glucose,Whole Blood 128 mg/dL (70-110)
[2022-06-30] MEDS: ISOSORBIDE MONONITRATE ER 30 MG TAB.ER.24H PO SCH (07:03)
[2022-06-30] MEDS: amLODIPine 10 MG TAB PO SCH (07:04)
[2022-06-30] MEDS: CLOPIDOGREL 75 MG TAB PO SCH (07:04)
[2022-06-30] MEDS: CYANOCOBALAMIN 500 MCG TAB PO SCH (07:04)
[2022-06-30] MEDS: FERROUS SULFATE 325 MG TAB PO SCH (07:04)
[2022-06-30] MEDS: atenoloL 25 MG TAB PO SCH ×2 (07:04→20:27)
[2022-06-30] MEDS: RUXOLITINIB PHOSPHATE 10 MG PO SCH ×2 (07:05→20:28)
[2022-06-30] MEDS: ATORVASTATIN 20 MG TAB PO SCH (07:05)
[2022-06-30] MEDS: metFORMIN 500 MG TAB PO SCH (07:05)
[2022-06-30] MEDS: LOSARTAN 50 MG TAB PO SCH (13:19)
[2022-06-30] MEDS: SODIUM CHLORIDE 0.9% 1,000 ML IV SCH (13:20)
[2022-06-30 13:25] LABS: ALT 19 U/L (4-34); AST 25 U/L (14-36); African American GFR (CKD) 66 (>60 ml/min/1.73 sqM); Albumin 4.2 g/dL (3.5-5.0); Alkaline Phosphatase 59 U/L (38-126); Anion Gap 10 mmol/L; Anisocytosis Slight; Blood Urea Nitrogen 19 mg/dL (7-17); Calcium 8.7 mg/dL (8.4-10.2); Carbon Dioxide 26 mmol/L (22-30); Chloride 97 mmol/L (98-107); Globulin 2.1 g/dL; Glucose 132 mg/dL (74-99); HCT 33.2 % (34.0-46.0); HGB 10.9 gm/dL (11.4-16.0); MCH 32.7 pg (25.0-35.0); MCHC 32.6 g/dL (31.0-37.0); MCV 100.2 fL (80.0-100.0); Macrocytosis Slight; Mean Platelet Volume 9.6; Non-African American GFR(CKD) 57 (>60 ml/min/1.73 sqM); Platelet Count 639 k/uL (150-450); Potassium 4.6 mmol/L (3.5-5.1); RBC 3.32 m/uL (3.80-5.40); RDW 16.5 % (11.5-15.5); Sodium 133 mmol/L (137-145); Total Bilirubin 0.9 mg/dL (0.2-1.3); Total Protein 6.3 g/dL (6.3-8.2)
[2022-06-30 14:00] LABS: Band Neutrophils % 1 %; Metamyelocytes % 2 %; Myelocytes % 2 %; Neutrophils % (M) 77 %; Nucleated Red Blood Cells 3 /100 WBC (0-0); Poikilocytosis (M) Present; Polychromasia Present; Total Cells Counted 200
[2022-06-30] MEDS: PSYLLIUM HUSK 100% 6 GM PACKET PO SCH (21:43)
--- NOTE | 2022-06-30 22:50 | HP ---
HISTORY AND PHYSICAL HISTORY OF PRESENT ILLNESS: An 86-year-old white female who presents with a 3-day history of dizziness and dry heaves, chest cold symptoms, initially fall over. She fell over at home, near syncope. She has headache. She says she feels like she did last time when she came severely dehydrated. Denies any chest pain, difficulty breathing. No actual vomiting or diarrhea. Denies any slurred speech. She has given appropriate answers sitting here talking to me. She is a diabetic, has hypertension. States her blood sugars have been good. She takes care of her . anything funny. MEDICATIONS: See list. ALLERGIES: See list. REVIEW OF SYSTEMS: A 14-point review of systems negative except for weakness, fatigue. PAST MEDICAL HISTORY: Coronary artery disease, cancer, CVA, TIA, diabetes mellitus, hypertension, dyslipidemia, osteoarthritis, sleep apnea, foot surgery, bowel resection, tonsillectomy, right ovary removed. FAMILY HISTORY: Father coronary artery disease, suddenly with some kind of cancer. Mother, coronary artery disease. PHYSICAL EXAMINATION: VITAL SIGNS: Stable, afebrile. INTEGUMENT: Dry skin, dry mucous membranes. Poor skin turgor. HEENT: Within normal limits. Pupils equal, round, reactive. LUNGS: Clear. CARDIOVASCULAR: S1, S2. HEMATOLOGY: Negative Homans. PSYCHIATRIC: Fair mood and affect. VASCULAR: Normal dorsalis pedis, posterior tibial, and radial pulse. VITAL SIGNS: Blood pressure currently is 110-176/68-97, pulse 66, respiratory rate 16 to 18, temp 97.9. CARDIOVASCULAR: S1, S2. LUNGS: Clear. PSYCHIATRIC: Alert and oriented x3. Cranial nerves are intact. LUNGS: Clear. CARDIOVASCULAR: S1, S2. LABORATORY DATA: White count 12.2, hemoglobin 7.3, sodium 123, potassium 4.9, hemoglobin 11.3, glucose 122. UA shows no signs of infection. ASSESSMENT: Generalized weakness, hyponatremia, dizziness, dry heaves. Suspect she has viral syndrome with dehydration. We can rehydrate overnight to see how she does. She has lactic acidosis 2.1, now down to 1.2. We will check some electrolytes tomorrow and see how she does. MMODL / IJN: [id number] /
[2022-07-01] MEDS: SODIUM CHLORIDE 0.9% 1,000 ML IV SCH ×2 (05:37→15:28)
[2022-07-01] MEDS: PSYLLIUM HUSK 100% 6 GM PACKET PO SCH (07:36)
[2022-07-01] MEDS: LOSARTAN 50 MG TAB PO SCH (07:37)
[2022-07-01] MEDS: metFORMIN 500 MG TAB PO SCH (07:37)
[2022-07-01] MEDS: ATORVASTATIN 20 MG TAB PO SCH (07:38)
[2022-07-01] MEDS: CLOPIDOGREL 75 MG TAB PO SCH (07:38)
[2022-07-01] MEDS: CYANOCOBALAMIN 500 MCG TAB PO SCH (07:38)
[2022-07-01] MEDS: atenoloL 25 MG TAB PO SCH (07:38)
[2022-07-01] MEDS: ISOSORBIDE MONONITRATE ER 30 MG TAB.ER.24H PO SCH (07:38)
[2022-07-01] MEDS: amLODIPine 10 MG TAB PO SCH (07:38)
[2022-07-01] MEDS: FERROUS SULFATE 325 MG TAB PO SCH (07:39)
[2022-07-01] MEDS: RUXOLITINIB PHOSPHATE 10 MG PO SCH (07:39)
[2022-07-01 08:04] LABS: AST 30 U/L (14-36); African American GFR (CKD) 82 (>60 ml/min/1.73 sqM); Albumin 4.3 g/dL (3.5-5.0); Albumin/Globulin Ratio 1.8; Alkaline Phosphatase 67 U/L (38-126); Anion Gap 10 mmol/L; Blood Urea Nitrogen 17 mg/dL (7-17); Calcium 8.8 mg/dL (8.4-10.2); Carbon Dioxide 19 mmol/L (22-30); Chloride 105 mmol/L (98-107); Globulin 2.4 g/dL; Glucose 90 mg/dL (74-99); Non-African American GFR(CKD) 71 (>60 ml/min/1.73 sqM); Potassium 4.5 mmol/L (3.5-5.1); Sodium 134 mmol/L (137-145); Total Protein 6.7 g/dL (6.3-8.2)
[2022-07-01 08:05] LABS: ALT 19 U/L (4-34)
[2022-07-01 11:35] LABS: Basophils # (A) 0.08 X 10*3/uL (0.00-0.10); Basophils % (A) 0.7 %; Eosinophils # (A) 0.24 X 10*3/uL (0.04-0.35); Eosinophils % (A) 2.2 %; HCT 34.3 % (37.2-46.3); Immature Grans, Automated 4.1 %; Lymphocytes # (A) 0.92 X 10*3/uL (0.90-5.00); Lymphocytes % (A) 8.5 %; MCHC 32.1 g/dL (32.0-37.0); MCV 99.7 fL (80.0-97.0); Monocytes # (A) 0.89 X 10*3/uL (0.20-1.00); Monocytes % (A) 8.2 %; NRBC Per 100 WBC 2.8 /100 WBCS (0.0-0.0); Neutrophils % (A) 76.3 %; Platelet Count 624 X 10*3/uL (140-440); RBC 3.44 X 10*6/uL (4.10-5.20); RDW 16.8 % (11.5-14.5); WBC 10.88 X 10*3/uL (4.50-10.00)
--- NOTE | 2022-07-01 12:10 | P.CRDCN ---
History of Present Illness Consult date: 07/01/22 Requesting physician: Juan Villalta Reason for Consult (text): bradycardia/htn Chief complaint: dizziness, near syncope History of present illness: This is a pleasant 86-year-old female patient who follows with Dr. Mendez in the office. She has a history of CAD with known total occlusion of proximal RCA, hypertension, hyperlipidemia, peripheral vascular disease, diabetes. Presented to the emergency department with dizziness and near syncope at home. Upon presentation she had evidence of dehydration. Sodium level was 123. She was hydrated with improvement. Sodium today 134. Grafts to the patient in consultation due to evidence of bradycardia as well as poorly controlled hypertension. She's currently on atenolol 12.5 mg by mouth twice a day, amlodipine 10 mg by mouth daily and losartan 100 mg by mouth daily. She is also on isosorbide 30 mg by mouth daily, atorvastatin 20 mg by mouth daily and Plavix 75 mg by mouth daily. She has no complaints of shortness of breath, chest discomfort, edema, orthopnea or PND. She said no palpitations. Following hydration her dizziness has improved. Blood pressure remains poorly controlled. She has mildly bradycardic. At home she was on losartan/hydrochlorothiazide, this is unchanged. Echocardiogram with Doppler study done in March of this year showed normal LV systolic function with moderate MR and mild to moderate TR. Past Medical History Past Medical History: Coronary Artery Disease (CAD), Cancer, CVA/TIA, Diabetes Mellitus, Hyperlipidemia, Hypertension, Osteoarthritis (OA), Sleep Apnea/CPAP/BIPAP, Syncope Additional Past Medical History / Comment(s): LEUKEMIA, arterial blockage History of Any Multi-Drug Resistant Organisms: None Reported Past Surgical History: Bowel Resection, Tonsillectomy Additional Past Surgical History / Comment(s): RIGHT OVARY REMOVED, hi cataract surgery, bone marrow biopsy Past Anesthesia/Blood Transfusion Reactions: Motion Sickness Past Psychological History: No Psychological Hx Reported Smoking Status: Never smoker Past Alcohol Use History: None Reported Additional Past Alcohol Use History / Comment(s): smoked on and off [id number] 1ppd Past Drug Use History: None Reported - Past Family History Father Family Medical History: Cancer, Coronary Artery Disease (CAD) Sister(s) Family Medical History: No Reported History Son(s) Family Medical History: Cancer Additional Family Medical History / Comment(s): larynx cancer Daughter(s) Family Medical History: Cancer Mother Family Medical History: Coronary Artery Disease (CAD) Medications and Allergies Home Medications Medication Instructions Recorded Confirmed Type Isosorbide Mononitrate ER [Imdur] 30 mg PO DAILY 05/18/15 06/29/22 History Acetaminophen Tab [Tylenol] 1,000 mg PO Q6H PRN 08/28/20 06/29/22 History Atorvastatin [Lipitor] 20 mg PO DAILY 08/28/20 06/29/22 History Clopidogrel [Plavix] 75 mg PO DAILY 08/28/20 06/29/22 History Propylene Glycol/Peg 400/Pf 1 drop BOTH EYES BID 08/28/20 06/29/22 History [Systane 0.3-0.4% Eye Drop] Cyanocobalamin [Vitamin B-12] 500 mcg PO DAILY 04/10/22 06/29/22 History Ruxolitinib Phosphate [Jakafi] 20 mg PO BID 04/10/22 06/29/22 History amLODIPine [Norvasc] 10 mg PO DAILY 90 Days #90 tab 04/12/22 06/29/22 Rx Calcium Carbonate [Tums] 2,500 mg PO DAILY 06/29/22 06/29/22 History Ferrous Sulfate [Feosol] 325 mg PO DAILY 06/29/22 06/29/22 History Losartan-Hctz 50-12.5 mg [Hyzaar 0.5 tab PO DAILY 06/29/22 06/29/22 History 50-12.5] Psyllium Husk/Aspartame [Metamucil 6 gm PO DAILY 06/29/22 06/29/22 History Sugar-Free Powder] atenoloL [Tenormin] 12.5 mg PO BID 06/29/22 06/29/22 History metFORMIN HCL [Glucophage] 500 mg PO DAILY 06/29/22 06/29/22 History Allergies Allergy/AdvReac Type Severity Reaction Status Date / Time celecoxib [From Celebrex] Allergy Rash/Hives Verified 06/29/22 12:39 latex Allergy Rash/Hives Verified 06/29/22 12:39 naproxen [From Naprosyn] Allergy Unknown Verified 06/29/22 12:39 piroxicam [From Feldene] Allergy Unknown Verified 06/29/22 12:39 caffeine AdvReac BREAST Verified 06/29/22 12:39 TENDERNESS cortisone AdvReac Nausea & Verified 06/29/22 12:39 Vomiting headache Milk Containing Products AdvReac constipatio Verified 06/29/22 12:39 [Dairy] n Physical Exam Vitals: Vital Signs Temp Pulse Pulse Pulse Pulse Resp BP 07/01/22 08:34 07/01/22 08:00 97.7 F 56 L 18 07/01/22 01:26 98.6 F 58 L 18 06/30/22 21:45 06/30/22 21:43 64 60 56 L 174/81 06/30/22 20:25 97.8 F 77 20 06/30/22 14:07 97.8 F 61 17 06/30/22 14:04 97.8 F 59 L 18 06/30/22 14:00 97.8 F 59 L 17 BP BP BP BP Pulse Ox 07/01/22 08:34 97 07/01/22 08:00 188/79 98 07/01/22 01:26 126/67 99 06/30/22 21:45 164/83 06/30/22 21:43 161/77 06/30/22 20:25 199/77 99 06/30/22 14:07 144/64 95 06/30/22 14:04 151/71 97 06/30/22 14:00 151/71 97 Intake and Output 06/30/22 07/01/22 07/01/22 22:59 06:59 14:59 Intake Total 900 Balance 900 Intake: Intake, IV Titration 900 Amount Sodium Chloride 0.9% 1, 900 000 ml @ 75 mls/hr IV . [id number] [facility] Rx#:[id number] Other: Voiding Method Toilet Toilet # Voids 1 7 # Bowel Movements 1 PHYSICAL EXAMINATION: This is a 86-year-old female in no apparent distress at the time of my examination. VITAL SIGNS: Blood pressure 188/79, heart rate 56, respirations 18, temp 97.7F. Patient is 97% on room air. HEENT: Head is atraumatic, normocephalic. Pupils are equal, round. Sclerae anicteric. Conjunctivae are clear. Mucous membranes of the mouth are moist. Neck is supple. There is no elevated jugular venous pressure. Left carotid bruit is heard. CHEST EXAMINATION: Clear to auscultation bilaterally. No wheezes rales or rhonchi. Respirations even and nonlabored. HEART EXAMINATION: Heart regular, positive S1 and S2. No S3. No S4. No clicks, rubs. With a systolic murmur at the base. ABDOMEN: Soft, nontender. Bowel sounds are heard. No organomegaly noted. EXTREMITIES: 2+ peripheral pulses with no evidence of peripheral edema and no calf tenderness noted. NEUROLOGIC EXAMINATION: Patient is awake, alert and oriented x3. Results 07/01/22 07:28 07/01/22 07:28 Cardiac Enzymes 06/30/22 07/01/22 Range/Units 12:38 07:28 AST 25 30 (14-36) U/L CBC 06/30/22 07/01/22 Range/Units 12:38 07:28 WBC 10.0 10.88 H (3.8-10.6) k/uL RBC 3.32 L 3.44 L (3.80-5.40) m/uL Hgb 10.9 L 11.0 L (11.4-16.0) gm/dL Hct 33.2 L 34.3 L (34.0-46.0) % Plt Count 639 H 624 H (150-450) k/uL Comprehensive Metabolic Panel 06/30/22 07/01/22 Range/Units 12:38 07:28 Sodium 133 L 134 L (137-145) mmol/L Potassium 4.6 4.5 (3.5-5.1) mmol/L Chloride 97 L 105 (98-107) mmol/L Carbon Dioxide 26 19 L (22-30) mmol/L BUN 19 H 17 (7-17) mg/dL Creatinine 0.93 0.77 (0.52-1.04) mg/dL Glucose 132 H 90 (74-99) mg/dL Calcium 8.7 8.8 (8.4-10.2) mg/dL AST 25 30 (14-36) U/L ALT 19 19 (4-34) U/L Alkaline Phosphatase 59 67 (38-126) U/L Total Protein 6.3 6.7 (6.3-8.2) g/dL Albumin 4.2 4.3 (3.5-5.0) g/dL Current Medications Generic Name Dose Route Start Last Admin Trade Name Freq PRN Reason Stop Dose Admin Amlodipine Besylate 10 mg 06/30/22 09:00 07/01/22 07:38 Amlodipine 10 Mg Tab PO 10 mg DAILY KAYLENE Administration Atenolol 12.5 mg 07/02/22 09:00 Atenolol 12.5 Mg Tab PO DAILY KAYLENE Atorvastatin Calcium 20 mg 06/30/22 09:00 07/01/22 07:38 Atorvastatin 20 Mg Tab PO 20 mg DAILY KAYLENE Administration Clopidogrel Bisulfate 75 mg 06/30/22 09:00 07/01/22 07:38 Clopidogrel 75 Mg Tab PO 75 mg DAILY KAYLENE Administration Cyanocobalamin 500 mcg 06/30/22 09:00 07/01/22 07:38 Cyanocobalamin 500 Mcg Tab PO 500 mcg DAILY KAYLENE Administration Ferrous Sulfate 325 mg 06/30/22 09:00 07/01/22 07:39 Ferrous Sulfate 325 Mg Tab PO 325 mg DAILY KAYLENE Administration Sodium Chloride 1,000 mls @ 75 mls/hr 06/30/22 12:30 07/01/22 05:37 Saline 0.9% IV 75 mls/hr .[id number] KAYLENE Administration Isosorbide Mononitrate 30 mg 06/30/22 09:00 07/01/22 07:38 Isosorbide Mononitrate Er 30 Mg Tab.Er.24h PO 30 mg DAILY KAYLENE Administration Losartan Potassium 100 mg 06/30/22 13:15 07/01/22 07:37 Losartan 50 Mg Tab PO 100 mg DAILY KAYLENE Administration Metformin HCl 500 mg 06/30/22 09:00 07/01/22 07:37 Metformin 500 Mg Tab PO 500 mg DAILY KAYLENE Administration Non-Formulary Medication 20 mg 06/29/22 21:00 07/01/22 07:39 Ruxolitinib Phosphate [Jakafi] PO Not Given BID [facility] Psyllium Hydrophilic Mucilloid 6 gm 06/30/22 22:30 07/01/22 07:36 Psyllium Husk 100% 6 Gm Packet PO 6 gm DAILY KAYLENE Administration Intake and Output 06/30/22 07/01/22 07/01/22 22:59 06:59 14:59 Intake Total 900 Balance 900 Intake: Intake, IV Titration 900 Amount Sodium Chloride 0.9% 1, 900 000 ml @ 75 mls/hr IV . [id number] [facility] Rx#:[id number] Other: Voiding Method Toilet Toilet # Voids 1 7 # Bowel Movements 1 07/01/22 07:28 07/01/22 07:28 EKG Interpretations (text) Sinus Bradycardia Assessment and Plan Assessment: Symptoms of dizziness and near syncope with evidence of hyponatremia improved #2 hypertension, uncontrolled #3 CAD with known total occlusion of proximal RCA #4 hyperlipidemia #5 diabetes Plan: From cardiology's perspective we will discontinue atenolol. We will add hydralazine. Continue to follow blood pressure closely. Further recommendations to follow depending on response. 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 Patient was seen and examined.
[2022-07-01] MEDS ORDERED: hydrALAZINE HCL 25 MG TAB PO SCH (12:15)
[2022-07-01 14:08] VITALS: BP 144/75; PULSE 69; RESP 16; TEMP 98
--- NOTE | 2022-07-01 22:26 | DS ---
DISCHARGE SUMMARY DISCHARGE MEDICINES: 1. Apresoline 25 b.i.d. 2. Cozaar 100 mg daily. 3. Imdur 30 mg daily. 4. Tylenol 1000 q.6 p.r.n. 5. Polyethylene glycol 1 drop both eyes b.i.d. 6. Plavix 75 mg daily. 7. Lipitor 20 mg daily. 8. Vitamin B12 at 500 mcg daily. 9. Norvasc 10 mg daily. 10.Metamucil p.r.n. 11.Iron p.r.n. 325 daily. 12. daily. 13.Jakafi 20 mg b.i.d. 14.Metformin 500 daily. PROGNOSIS: Guarded. FOLLOWUP: In our office in a week. CONDITION: Stable. HOSPITAL COURSE: The patient came with severe dehydration, off balance bradycardia. Beta blockers were stopped. Cardiology was consulted. Added hydralazine. We took her off her HCTZ, which could be contributing to electrolyte abnormalities. The patient improved. Her blood pressure was 130s to 140s over 70s on discharge, and she will follow up in our office in a week to recheck her electrolytes and blood pressure. She is stable from medical standpoint. MMODL / IJN: [id number] /
== END 2022-07-01 18:23 | disposition home or self-care (01) | DRG 641 ==
LOC: EC 12:30 → 4SSUR 15:44
PROVIDERS: ADMIT Family Medicine; ATTEND Family Medicine
DX: E86.0 Dehydration (principal); E11.51 Type 2 diabetes mellitus with diabetic peripheral angiopathy without gangrene; I10 Essential (primary) hypertension; E87.2 Acidosis; I25.82 Chronic total occlusion of coronary artery; B34.9 Viral infection, unspecified; E87.1 Hypo-osmolality and hyponatremia; I25.10 Atherosclerotic heart disease of native coronary artery without angina pectoris; E78.5 Hyperlipidemia, unspecified; M19.90 Unspecified osteoarthritis, unspecified site; R00.1 Bradycardia, unspecified; R55 Syncope and collapse; Z79.02 Long term (current) use of antithrombotics/antiplatelets; Z86.73 Personal history of transient ischemic attack (TIA), and cerebral infarction without residual deficits; Z85.6 Personal history of leukemia; Z90.49 Acquired absence of other specified parts of digestive tract; Z79.84 Long term (current) use of oral hypoglycemic drugs; Z91.040 Latex allergy status; Z88.6 Allergy status to analgesic agent; Z91.018 Allergy to other foods; Z91.011 Allergy to milk products; Z79.899 Other long term (current) drug therapy; Z90.721 Acquired absence of ovaries, unilateral; Z98.41 Cataract extraction status, right eye; Z98.42 Cataract extraction status, left eye; Z90.89 Acquired absence of other organs; Z98.890 Other specified postprocedural states; Z82.49 Family history of ischemic heart disease and other diseases of the circulatory system; Z80.2 Family history of malignant neoplasm of other respiratory and intrathoracic organs
CPT/HCPCS: 36415; 71046; 80053; 81003; 83605; 83735; 84484; 85025; 93005; 94760; 96360; 99285